=== PATIENT | female | born 1930 | race Caucasian/White ===

== ENCOUNTER → 2017-08-06 | Outpatient (CLI) | payer MEDICARE, OTHER ==
[~2017-08-06] MED LIST: AMOCLA875 PO; ASPI81EC PO; ATEN50 PO; ATOR10; ATOR20 PO; AZIT250 PO; BUDE6HFA; CALCA500S6 PO; FISH1000 PO; FOLI1 PO; FURO40 PO; IRBE150; IRBHYD150; LATA.005SO BOTHEYES; LEVFLO500 PO; LOSA50 PO; METO100ER; METO50 PO; MONT10T PO; OLME20 PO; POTA10T PO; PRAV20 PO; PROACE100 PO; RXPROACE PO; TUDORZA PRESS400 MCG INH; UBID10 PO; VALS80; XARELTO15 MG PO; Zithromax250 MG PO
== END | disposition home or self-care (01) ==
LOC: LAB SHORT 07:41 → PLD 07:41
DX: D48.5 Neoplasm of uncertain behavior of skin (principal)
CPT/HCPCS: 88305

== ENCOUNTER 2018-05-27 17:55 | Emergency (ER) | payer MEDICARE, OTHER ==
[~2018-05-27] VITALS: Ht 160 cm; Wt 54.4 kg
[2018-05-27 18:34] LABS: BASOPHILS ABSOLUTE AUTO 0.06 K/mm3 (0.00-0.23); BASOPHILS PERCENT AUTO 1 % (0-2); EOSINOPHILS ABSOLUTE AUTO 0.13 K/mm3 (0.00-0.68); EOSINOPHILS PERCENT AUTO 2 % (0-6); Hematocrit 46.3 % (33.0-51.0); Hemoglobin 14.2 g/dL (11.5-16.0); IMMATURE GRAN ABSOLUTE AUTO 0.02 K/mm3 (0.00-0.10); IMMATURE GRAN PERCENT AUTO 0 % (0-1); LYMPHOCYTES PERCENT AUTO 20 % (21-46); MONOCYTES ABSOLUTE AUTO 0.74 K/mm3 (0.16-1.47); MONOCYTES PERCENT AUTO 10 % (4-13); Mean Corpuscular HGB 33.2 pg (26.0-34.0); Mean Corpuscular HGB Conc 30.7 g/dL (31.5-36.5); Mean Corpuscular Volume 108 fL (80-100); Mean Platelet Volume 10.2 fL (9.1-12.4); NEUTROPHILS ABSOLUTE AUTO 5.11 K/mm3 (1.96-9.15); NEUTROPHILS PERCENT AUTO 68 % (41-73); Platelet Count 228 K/mm3 (150-400); RDW Coefficient Variation 13.1 % (11.7-14.2); RDW Standard Deviation 52.2 fL (35.1-46.3); Red Blood Cell Count 4.28 M/mm3 (3.80-5.20); White Blood Cell Count 7.56 K/mm3 (4.00-11.30)
[2018-05-27 18:44] LABS: Albumin, Blood 2.8 g/dL (3.4-5.0); Albumin/Globulin Ratio 0.7 (0.8-1.8); Bilirubin, Total 0.8 mg/dL (0.1-1.0); Bun/Creatinine Ratio 23.6 (12.0-20.0); Calcium, Blood 8.1 mg/dL (8.5-10.1); Creatinine, Blood 1.27 mg/dL (0.40-1.00); Globulin, Blood 4.2 g/dL (2.2-4.0); Potassium, Blood 4.4 mmol/L (3.5-5.5)
== END 2018-05-27 21:06 | disposition home or self-care (01) ==
LOC: ER 17:55
PROVIDERS: Emergency Medicine
DX: J44.1 Chronic obstructive pulmonary disease with (acute) exacerbation (principal); I48.91 Unspecified atrial fibrillation; I12.9 Hypertensive chronic kidney disease with stage 1 through stage 4 chronic kidney disease, or unspecified chronic kidney disease; N18.9 Chronic kidney disease, unspecified; E78.00 Pure hypercholesterolemia, unspecified; Z87.891 Personal history of nicotine dependence; Z79.899 Other long term (current) drug therapy
CPT/HCPCS: 36415; 71046; 80053; 85025; 93005; 93010; 94644; J1100

== ENCOUNTER → 2018-06-03 | Outpatient (CLI) | payer MEDICARE, OTHER | LOC: LAB EV 12:15 → LAB SHORT 12:15 | DX: R31.0 Gross hematuria (principal) | CPT/HCPCS: 87077; 87086; 87186 ==

== ENCOUNTER 2018-06-20 20:18 | Observation (INO) | payer MEDICARE, OTHER ==
[~2018-06-20] VITALS: Ht 160 cm; Wt 54.4 kg
[2018-06-20 23:41] LABS: BASOPHILS ABSOLUTE AUTO 0.08 K/mm3 (0.00-0.23); BASOPHILS PERCENT AUTO 1 % (0-2); EOSINOPHILS ABSOLUTE AUTO 0.28 K/mm3 (0.00-0.68); EOSINOPHILS PERCENT AUTO 3 % (0-6); Hematocrit 42.5 % (33.0-51.0); Hemoglobin 13.3 g/dL (11.5-16.0); IMMATURE GRAN ABSOLUTE AUTO 0.02 K/mm3 (0.00-0.10); IMMATURE GRAN PERCENT AUTO 0 % (0-1); LYMPHOCYTES ABSOLUTE AUTO 1.93 K/mm3 (0.84-5.20); LYMPHOCYTES PERCENT AUTO 23 % (21-46); MONOCYTES ABSOLUTE AUTO 0.96 K/mm3 (0.16-1.47); MONOCYTES PERCENT AUTO 12 % (4-13); Mean Corpuscular HGB 32.4 pg (26.0-34.0); Mean Corpuscular HGB Conc 31.3 g/dL (31.5-36.5); Mean Corpuscular Volume 104 fL (80-100); Mean Platelet Volume 9.4 fL (9.1-12.4); NEUTROPHILS PERCENT AUTO 61 % (41-73); Platelet Count 267 K/mm3 (150-400); RDW Coefficient Variation 13.2 % (11.7-14.2); RDW Standard Deviation 50.7 fL (35.1-46.3); White Blood Cell Count 8.37 K/mm3 (4.00-11.30)
[2018-06-21] LABS: Albumin, Blood 2.5 g/dL (3.4-5.0); Albumin/Globulin Ratio 0.6 (0.8-1.8); Bilirubin, Total 0.3 mg/dL (0.1-1.0); Bun/Creatinine Ratio 20.1 (12.0-20.0); Creatinine, Blood 1.69 mg/dL (0.40-1.00); Globulin, Blood 3.9 g/dL (2.2-4.0); Potassium, Blood 4.4 mmol/L (3.5-5.5); Total Protein, Blood 6.4 g/dL (6.4-8.2)
--- NOTE | 2018-06-21 04:03 | NUR ---
ADMISSION: REPORT RECIEVED FROM ED BUD SAGE, PT TO UNIT AT 0115. PT ABLE TO WALK FROM GURNEY TO BED, PT IS A/O ANSWERING QUESTIONS. NO ACUTE DISTESS, PT DENIES VISION CHANGES, HEADACHE, NO DECREASED LOC. NUERO CHECK WNL. PUPILS ROUND AND REACTIVE. ABLE TO COMPLETE PT HISTORY, PT REPORTS PAIN AT CONTUSION SITE, WILL CALL DR. ZULETA. WILL CTM PT STATUS
--- NOTE | 2018-06-21 06:09 | NUR ---
PT TO CT AT THIS TIME, TRANSPORTED WITH 2L O2
--- NOTE | 2018-06-21 06:10 | NUR ---
SUMMARY: NO ACUTE CHANGE SINCE ADMISSION. PT REMAINS A/O. VSS. NUERO CHECK WNL. PT STATES THAT TYLENOL HELPED HER PAIN AT CONTUSION. PT USING CALL LIGHT. IV FLUIDS INFUSING. VSS. NO SAFETY CONCERNS AT THIS TIME, BED ALARM ON FOR SAFETY.
--- NOTE | 2018-06-21 14:10 | NUR ---
UPDATED DR. SONG ON PT/OT THERAPY RECOMMENDATIONS ON STAYING ANOTHER DAY. UPDATED ON INCREASED NECK PAIN--TYLENOL ORDERED TO 1000MG PER DR. SONG.
--- NOTE | 2018-06-21 18:00 | NUR ---
SHIFT SUMMARY NO NEUROLOGICAL CHANGES TODAY. VSS. PT HAD SLIGHT HEADACHE AT BEGINNING OF SHIFT AND TYLENOL GIVEN AND WAS EFFECTIVE. PT DOES COMPLAIN OF NECK PAIN INTERMITTENTLY. PT UP WITH SBA WHILE AMBULATING. IV SL. MARIANNA REG DIET. PT/OT WORKED WITH PT TODAY--PLAN IS TO GO HOME WITH HOME HEALTH UPON DISCHARGE. FAMILY AT BEDSIDE FOR SUPPORT.
--- NOTE | 2018-06-22 06:45 | NUR ---
SUMMARY PT REPORTING SLEPT WELL NO DECLINE IN NEURO STATUS. DEBI.
--- NOTE | 2018-06-22 10:45 | NUR ---
DR SONG IN TO SEE PT.
[2018-06-22] MEDS ORDERED: ACET325 PO (11:45)
--- NOTE | 2018-06-22 11:50 | NUR ---
FAXED FACESHEET AND PRESCRIPTION FOR FWW TO [facility].
--- NOTE | 2018-06-22 13:32 | NUR ---
dc'd REVIEWED DC PAPERWORK W/PT, DAUGHTER. VERBALIZED UNDERSTANDING. DC'D IV, CATHETER INTACT. PT LEFT UNIT IN WC W/POSSESSIONS AND DC PAPERWORK IN HAND. PT REFUSED TO TAKE WALKER, STATING WILL USE CANE AT HOME.
== END 2018-06-22 13:31 | disposition home health service (06) ==
LOC: ER 20:18 → SURS 20:19
PROVIDERS: ADMIT Internal Medicine
DX: S00.03XA Contusion of scalp, initial encounter (principal); J44.9 Chronic obstructive pulmonary disease, unspecified; I12.9 Hypertensive chronic kidney disease with stage 1 through stage 4 chronic kidney disease, or unspecified chronic kidney disease; N18.3 Chronic kidney disease, stage 3 (moderate); I48.91 Unspecified atrial fibrillation; E78.5 Hyperlipidemia, unspecified; M19.90 Unspecified osteoarthritis, unspecified site; Z99.81 Dependence on supplemental oxygen; Z79.899 Other long term (current) drug therapy; Z79.01 Long term (current) use of anticoagulants; W01.0XXA Fall on same level from slipping, tripping and stumbling without subsequent striking against object, initial encounter
CPT/HCPCS: 36415; 70450; 72125; 80053; 85025; 96360; 96361; 97116; 97162; 97165; 97530; 99285-25; G0378; J7030

== ENCOUNTER → 2018-07-03 | Outpatient (CLI) | payer MEDICARE, OTHER ==
[~2018-07-03] MED LIST changes: +ACET325 PO
[2018-07-03 11:26] LABS: BASOPHILS PERCENT AUTO 1 % (0-2); EOSINOPHILS ABSOLUTE AUTO 0.22 K/mm3 (0.00-0.68); EOSINOPHILS PERCENT AUTO 2 % (0-6); Hematocrit 43.2 % (33.0-51.0); IMMATURE GRAN ABSOLUTE AUTO 0.05 K/mm3 (0.00-0.10); IMMATURE GRAN PERCENT AUTO 0 % (0-1); LYMPHOCYTES ABSOLUTE AUTO 1.73 K/mm3 (0.84-5.20); LYMPHOCYTES PERCENT AUTO 14 % (21-46); MONOCYTES ABSOLUTE AUTO 1.41 K/mm3 (0.16-1.47); MONOCYTES PERCENT AUTO 11 % (4-13); Mean Corpuscular HGB 32.3 pg (26.0-34.0); Mean Corpuscular HGB Conc 32.4 g/dL (31.5-36.5); Mean Platelet Volume 9.8 fL (9.1-12.4); NEUTROPHILS ABSOLUTE AUTO 8.83 K/mm3 (1.96-9.15); NEUTROPHILS PERCENT AUTO 72 % (41-73); Platelet Count 213 K/mm3 (150-400); RDW Coefficient Variation 13.7 % (11.7-14.2); RDW Standard Deviation 50.1 fL (35.1-46.3); Red Blood Cell Count 4.34 M/mm3 (3.80-5.20); White Blood Cell Count 12.34 K/mm3 (4.00-11.30)
[2018-07-03 11:27] LABS: Mean Corpuscular Volume 100 fL (80-100)
[2018-07-03 11:29] LABS: Calcium, Blood 8.3 mg/dL (8.5-10.1); Creatinine, Blood 1.9 mg/dL (0.40-1.00); Potassium, Blood 4.6 mmol/L (3.5-5.5)
== END | disposition home or self-care (01) ==
LOC: LAB EV 11:20 → LAB SHORT 11:20
PROVIDERS: Internal Medicine
DX: I95.89 Other hypotension (principal)
CPT/HCPCS: 80048; 85025

== ENCOUNTER 2018-08-30 12:10 | Inpatient (IN) | payer MEDICARE, OTHER ==
[~2018-08-30] VITALS: Ht 165.1 cm; Wt 57.3 kg
[~2018-08-30 12:10] MED LIST changes: -ALBU90OI INH; -ASPI325 PO; -BUDE6HFA INH; -CEFD300 PO; -FURO20 PO; -Mucinex600 MG PO
[2018-08-30 13:23] LABS: Alanine Aminotransfer (ALT/SGP 14 U/L (12-78); Albumin, Blood 3.1 g/dL (3.4-5.0); Albumin/Globulin Ratio 0.8 (0.8-1.8); Alk Phos 128 U/L (50-136); Anion Gap 5 mmol/L (6-16); Aspartate Aminotrans (AST/SGOT 12 U/L (12-37); Bilirubin, Total 0.4 mg/dL (0.1-1.0); Blood Urea Nitrogen 30 mg/dL (8-24); Bun/Creatinine Ratio 16.8 (12.0-20.0); CO2, Blood 29 mmol/L (21-32); Calcium, Blood 8.3 mg/dL (8.5-10.1); Chloride, Blood 107 mmol/L (98-108); Creatinine, Blood 1.79 mg/dL (0.40-1.00); Globulin, Blood 3.8 g/dL (2.2-4.0); Glomerular Filtration Rate 28 (60-); Glucose, Blood 103 mg/dL (70-99); Sodium, Blood 141 mmol/L (136-145); Total Protein, Blood 6.9 g/dL (6.4-8.2); Troponin I <0.015 ng/mL (0.000-0.040)
[2018-08-30] MEDS ORDERED: ASPI325 PO (14:05)
[2018-08-30] MEDS ORDERED: Mucinex600 MG PO (14:05)
--- NOTE | 2018-08-30 14:53 | NUR ---
Telephone report from Robe Calvert RN, at this time. Anticipate arrival of pt to PCU 14 shortly.
[2018-08-30] MEDS ORDERED: FURO20 PO (15:41)
[2018-08-30 15:54] LABS: Source, Urine Clean Catch
[2018-08-30 15:57] LABS: Appearance, Urine Clear (Clear); Bilirubin, Urine Neg (Neg); Blood, Urine 2+ (Neg); Color, Urine Yellow (P-Yellow); Glucose Qualitative, Urine Neg (Neg); Ketones, Urine Neg (Neg); Leukocyte Esterase, Urine 2+ (Neg); Nitrite, Urine Neg (Neg); Protein, Urine 2+ (Neg); Specific Gravity, Urine 1.015 (1.003-1.022); Urobilinogen, Urine NORM (Normal)
[2018-08-30 16:06] LABS: Squamous Epithelial Cells Few /hpf (Few)
[2018-08-30 16:07] LABS: Bacteria Few /hpf; Granular Casts 0-2 /lpf (0); Transitional Epithelial Cells Few /hpf (0-Rare)
--- NOTE | 2018-08-30 16:40 | NUR ---
The pt arrived from ED via stretcher, in no apparent distress but states that she is having difficulty breathing. Sheis wearing oxgyen at 2.5 l/min but states that her normal delivery rate at home is 3 l/min. Lung sounds are clear but diminished in the bases. Tachypneic at rest, and dyspneic with activity of getting up to the bedside commode with assistance. Her daughter Lori is at the bedside with her. Dr. Welch was here to see the patient shortly after her arrival. Telemetry monitoring shows afib at rate of 100-105. Mild JVD noted. Pt was instructed on the fluid restriction, as well as given educational brochures on heart failure and an AHA daily checklist for heart failure patients.
--- NOTE | 2018-08-30 18:36 | NUR ---
Bill has been able to get OOB to the bedside commode to void; she is short of breath after the activity, but is able to speak short phrases until she catches her breath. She is voiding frequently after receiving IV lasix. Wearing oxygen at 3 l/min, which is her baseline home delivery rate. Blood pressure has been stable, and heart rate in the 110s, afib per delivery specialist tech.
--- NOTE | 2018-08-30 19:45 | NUR ---
ASSUMED CARE PT RESTING IN ROOM COMFORTABLY AT THIS TIME. PER DAY SHIFT PT HAS BEEN UNDERGOING DIURESIS W/ IV LASIX D/T CHF EXACERBATION. NO ACUTE CHANGES IN STATUS TODAY. PT IS GENERALLY WEAK AND SOME SOME DYSPNEA W/ EXERTION. CURRENTLY RESP IS EVEN UNLABORED ON 3L NC W/ SATS >92%. PT DENIES ANY PAIN AT THIS TIME. DENIES OTHER NEEDS. PT ON FLUID RESTRICTION, AND STRICT I/O. CALL LIGHT IN REACH.
[2018-08-31 04:38] LABS: Bun/Creatinine Ratio 17.3 (12.0-20.0); Calcium, Blood 8.1 mg/dL (8.5-10.1); Creatinine, Blood 1.85 mg/dL (0.40-1.00); Potassium, Blood 4.5 mmol/L (3.5-5.5)
--- NOTE | 2018-08-31 06:37 | NUR ---
SHIFT SUMMARY PT SLEEPING IN ROOM COMFORTABLY AT THIS TIME. NO ACUTE CHANGES IN STATUS T/O NIGHT. PT SLEPT WELL AND WAS UP TO BSC MULTIPLE TIMES TO URINATE. RESP EVEN UNLABORED AT REST ON 3L NC W/ SATS >92%. PT SLIGHTLY DYSPNIC W/ EXERTION TO BSC. DENIES PAIN, DENIES OTHER NEEDS. CALL LIGHT IN REACH. WILL REPORT OFF TO DAY RN.
--- NOTE | 2018-08-31 14:40 | NUR ---
Bill was up in the chair for lunch, which she tolerated well, ableit with some mild dyspnea during the activity of getting up to the chair. She has been napping this afternoon, and is back in bed at this time, with her daughter Lori at the bedside.
--- NOTE | 2018-08-31 15:55 | NUR ---
Telephone report given to Lazaro Craig RN, at this time.
--- NOTE | 2018-08-31 18:03 | NUR ---
PATIENT TRANSFERRED FROM PCU. SINCE ON THIS FLOOR SHE HAS HAD NO COMPLAINTS OF PAIN,SOB, OR NV. SHE IS ALERT AND ORIENTED AND COMPLIANT WITH CARES. SHE CONTINUES TO REQUIRE 3 L O2. PATIENT ON 1500 CC FLUID RESTRICTIONS.
--- NOTE | 2018-09-01 04:52 | NUR ---
SHIFT SUMMARY: 87 Y/O SLENDER FEMALE RESTED COMFORTABLY ALL SHIFT. PT DENIES PAIN OR NAUSEA, ALERT AND ORIENTED X 3, ABLE TO FOLLOW ALL SIMPLE VERBAL COMMANDS. PT WORE O2 AT 2L/M PER NASAL CANNULA WITH SATS AVERAGING AROUND 91%. PTS BED ALARM APPLIED, BED LOW POSITION, CALL LIGHT AT SIDE.
--- NOTE | 2018-09-01 17:50 | NUR ---
PT HAS BEEN AOX4 AND COOEPERATIVE OF ALL CARE. PT HAS BEEN RESTING IN BED. PT STATED SHE FELT BETTER TO BE LEAVING SUNDAY AND NOT TODAY. PT RELAXED AND DENIES PAIN AT THIS TIME. FOLLOWING FLUID RESTRICITON WELL. WILL CONTINUE TO MONITOR.
--- NOTE | 2018-09-02 04:12 | NUR ---
SHIFT SUMMARY: 87 Y/O FEMALE RESTED COMFORTABLY ALL SHIFT. PT ABLE TO TRANSFER AND AMBULATE TO BATHROOM AND BACK VIA WALKER X 1 STANDBY ASSIST. PT ALERT AND ORIETED X 3, ABLE TO FOLLOW SIMPLE VERBAL COMMANDS. PT DENIES PAIN OR NAUSEA. PTS BED ALARM APPLIED, BED LOW POSITION, CALL LIGHT AT SIDE.
--- NOTE | 2018-09-02 13:30 | NUR ---
Spiritual Care initial visit: Mrs. Spangler is a delightful woman who tells me she has a strong alba in a loving God. This alba sustains her. she is also well supported by family. She is being discharged today. She appears upbeat and [;easant. We prayed together for continued healing and for her family. She is satisfied with her Full Code status. No fears or concerns presented.
[2018-09-02] MEDS ORDERED: CEFD300 PO (13:41)
[2018-09-02] MEDS ORDERED: ALBU90OI INH (13:42)
[2018-09-02] MEDS ORDERED: BUDE6HFA INH (13:43)
[2018-09-02] MEDS ORDERED: XARELTO15 MG PO (13:43)
--- NOTE | 2018-09-02 14:08 | NUR ---
PATIENT DISCHARGE THE PATIENT WAS DISCHARGED HOME WITH HER DAUGHTER, AFTER DISCHARGE INSTRUCTIONS WERE GIVEN TO THE PATIENT. THE PATIENT LEFT THE HOSPITAL WITHOUT CONCERN OR COMPLAINT.
== END 2018-09-02 14:08 | disposition home or self-care (01) | DRG 291 ==
LOC: ER 12:10 → PCU 14:03 → MEDS 15:20
PROVIDERS: Emergency Medicine; ADMIT Internal Medicine
DX: I13.0 Hypertensive heart and chronic kidney disease with heart failure and stage 1 through stage 4 chronic kidney disease, or unspecified chronic kidney disease (principal); I50.33 Acute on chronic diastolic (congestive) heart failure; J96.21 Acute and chronic respiratory failure with hypoxia; J44.1 Chronic obstructive pulmonary disease with (acute) exacerbation; N18.4 Chronic kidney disease, stage 4 (severe); E78.00 Pure hypercholesterolemia, unspecified; Z87.891 Personal history of nicotine dependence; I48.2 Chronic atrial fibrillation; Z99.81 Dependence on supplemental oxygen; E87.5 Hyperkalemia; F32.9 Major depressive disorder, single episode, unspecified; R82.71 Bacteriuria
CPT/HCPCS: 36415; 71046; 80048; 80053; 81001; 84484; 85025; 87086; 93005; 93010; 94640; 94760; 96374; 97161; 97165; 97530; 99285-25; J1940

== ENCOUNTER → 2018-08-30 | Outpatient (CLI) | payer MEDICARE, OTHER ==
[~2018-08-30] MED LIST changes: +ALBU90OI INH; +ASPI325 PO; +BUDE6HFA INH; +CEFD300 PO; +FURO20 PO; +Mucinex600 MG PO
[2018-08-30 11:18] LABS: BASOPHILS ABSOLUTE AUTO 0.07 K/mm3 (0.00-0.23); BASOPHILS PERCENT AUTO 1 % (0-2); EOSINOPHILS ABSOLUTE AUTO 0.19 K/mm3 (0.00-0.68); EOSINOPHILS PERCENT AUTO 3 % (0-6); Hematocrit 38.9 % (33.0-51.0); Hemoglobin 11.8 g/dL (11.5-16.0); IMMATURE GRAN ABSOLUTE AUTO 0.03 K/mm3 (0.00-0.10); IMMATURE GRAN PERCENT AUTO 0 % (0-1); LYMPHOCYTES ABSOLUTE AUTO 1.19 K/mm3 (0.84-5.20); LYMPHOCYTES PERCENT AUTO 17 % (21-46); MONOCYTES ABSOLUTE AUTO 0.72 K/mm3 (0.16-1.47); MONOCYTES PERCENT AUTO 10 % (4-13); Mean Corpuscular HGB 32.5 pg (26.0-34.0); Mean Corpuscular HGB Conc 30.3 g/dL (31.5-36.5); Mean Corpuscular Volume 107 fL (80-100); Mean Platelet Volume 9.5 fL (9.1-12.4); NEUTROPHILS ABSOLUTE AUTO 4.82 K/mm3 (1.96-9.15); NEUTROPHILS PERCENT AUTO 69 % (41-73); Platelet Count 267 K/mm3 (150-400); RDW Coefficient Variation 14.6 % (11.7-14.2); RDW Standard Deviation 57.9 fL (35.1-46.3); Red Blood Cell Count 3.63 M/mm3 (3.80-5.20); White Blood Cell Count 7.02 K/mm3 (4.00-11.30)
[2018-08-30 11:21] LABS: Bun/Creatinine Ratio 15.2 (12.0-20.0); Calcium, Blood 8.4 mg/dL (8.5-10.1); Creatinine, Blood 1.98 mg/dL (0.40-1.00)
== END | disposition home or self-care (01) ==
LOC: LAB EV 11:10 → LAB SHORT 11:10
PROVIDERS: Physician Assistant Surgical
DX: R07.9 Chest pain, unspecified (principal)
CPT/HCPCS: 80048; 83880; 85025

== ENCOUNTER 2019-05-18 13:59 | Inpatient (IN) | payer MEDICARE, OTHER ==
[~2019-05-18] VITALS: Ht 165.1 cm; Wt 52.6 kg
[~2019-05-18 13:59] MED LIST changes: +ALBU90OI INH; +ASPI325 PO; +BUDE6HFA INH; +CEFD300 PO; +FURO20 PO; +Mucinex600 MG PO
[2019-05-18 14:29] LABS: BASOPHILS ABSOLUTE AUTO 0.08 K/mm3 (0.00-0.23); BASOPHILS PERCENT AUTO 1 % (0-2); EOSINOPHILS ABSOLUTE AUTO 0.12 K/mm3 (0.00-0.68); EOSINOPHILS PERCENT AUTO 2 % (0-6); Hematocrit 44.5 % (33.0-51.0); Hemoglobin 13.1 g/dL (11.5-16.0); IMMATURE GRAN ABSOLUTE AUTO 0.02 K/mm3 (0.00-0.10); IMMATURE GRAN PERCENT AUTO 0 % (0-1); LYMPHOCYTES ABSOLUTE AUTO 0.72 K/mm3 (0.84-5.20); LYMPHOCYTES PERCENT AUTO 11 % (21-46); MONOCYTES ABSOLUTE AUTO 0.61 K/mm3 (0.16-1.47); MONOCYTES PERCENT AUTO 9 % (4-13); Mean Corpuscular HGB 33.2 pg (26.0-34.0); Mean Corpuscular HGB Conc 29.4 g/dL (31.5-36.5); Mean Corpuscular Volume 113 fL (80-100); Mean Platelet Volume 9.6 fL (9.1-12.4); NEUTROPHILS ABSOLUTE AUTO 5.03 K/mm3 (1.96-9.15); NEUTROPHILS PERCENT AUTO 77 % (41-73); Platelet Count 215 K/mm3 (150-400); RDW Standard Deviation 54.7 fL (35.1-46.3); Red Blood Cell Count 3.94 M/mm3 (3.80-5.20); White Blood Cell Count 6.58 K/mm3 (4.00-11.30)
[2019-05-18 14:43] LABS: International Normalized Ratio 1.54; Prothrombin Time Results 16.1 Sec (9.7-11.5)
[2019-05-18 14:45] LABS: Calcium, Blood 8.6 mg/dL (8.5-10.1); Potassium, Blood 4.1 mmol/L (3.5-5.5)
[2019-05-18 14:49] LABS: Albumin/Globulin Ratio 0.7 (0.8-1.8); Bilirubin, Total 0.5 mg/dL (0.1-1.0); Bun/Creatinine Ratio 20.3 (12.0-20.0); Creatinine, Blood 1.53 mg/dL (0.40-1.00); Globulin, Blood 4.1 g/dL (2.2-4.0); Total Protein, Blood 7.1 g/dL (6.4-8.2)
[2019-05-18] MEDS ORDERED: Lopressor 50 mg50 MG PO (15:52)
[2019-05-18 16:44] LABS: Source, Urine Clean Catch
[2019-05-18 16:57] LABS: Bilirubin, Urine Neg (Neg); Blood, Urine 5+ (Neg); Glucose Qualitative, Urine Neg (Neg); Ketones, Urine 1+ (Neg); Leukocyte Esterase, Urine 2+ (Neg); Nitrite, Urine Neg (Neg); Protein, Urine 4+ (Neg); Urobilinogen, Urine NORM (Normal)
[2019-05-18 17:21] LABS: Appearance, Urine Bloody (Clear); Color, Urine Red (P-Yellow)
[2019-05-18 17:22] LABS: Red Blood Cells, Urine TNTC /hpf (0-2); White Blood Cells, Urine 50-100 /hpf (0-5)
[2019-05-18 17:23] LABS: Bacteria Few /hpf; Squamous Epithelial Cells Few /hpf (Few)
[2019-05-18] MEDS ORDERED: GUAI600T33 PO (20:33)
--- NOTE | 2019-05-19 04:24 | NUR ---
SHIFT SUMMARY PT NEW ED ADMIT THIS EVENING. A/O. SBA TO BSC. PT DOES BECOME SHORT OF BREATH WITH EXERTION. LUNG SOUNDS DIMINISHED. ON 2 L NC. PT ON 2.5 L O2 NC WHICH IS PT'S BASELINE. FAMILY REPORTS THAT PT HAS BEEN DYSPNEIC FOR MULTIPLE DAYS AND HAS HAD A POOR APPETITE. PT DID ASK FOR SOMETHING TO EAT AND WAS ABLE TO EAT A PUDDING AND A JELLO. COCCYX SLIGHTLY RED BUT NO BREAKDOWN. PT SELF REPOSITIONS IN BED. PT HAS VOIDED TWICE SO FAR THIS SHIFT, BOTH WITH HEMATURIA. SECOND VOID MUCH LESS RED THAN FIRST. PT DOES NOT REPORT ANY PAIN OR BURNING WITH URINATION. VITAL SIGNS HAVE BEEN STABLE. PT RESTING IN BED AT THIS TIME. WILL CONTINUE TO MONITOR.
[2019-05-19 04:52] LABS: BASOPHILS ABSOLUTE AUTO 0.07 K/mm3 (0.00-0.23); BASOPHILS PERCENT AUTO 1 % (0-2); EOSINOPHILS ABSOLUTE AUTO 0.07 K/mm3 (0.00-0.68); EOSINOPHILS PERCENT AUTO 1 % (0-6); Hematocrit 42.2 % (33.0-51.0); Hemoglobin 12.1 g/dL (11.5-16.0); IMMATURE GRAN ABSOLUTE AUTO 0.05 K/mm3 (0.00-0.10); IMMATURE GRAN PERCENT AUTO 1 % (0-1); LYMPHOCYTES ABSOLUTE AUTO 0.69 K/mm3 (0.84-5.20); LYMPHOCYTES PERCENT AUTO 12 % (21-46); MONOCYTES ABSOLUTE AUTO 0.86 K/mm3 (0.16-1.47); MONOCYTES PERCENT AUTO 15 % (4-13); Mean Corpuscular HGB 33.2 pg (26.0-34.0); Mean Corpuscular HGB Conc 28.7 g/dL (31.5-36.5); NEUTROPHILS ABSOLUTE AUTO 4.03 K/mm3 (1.96-9.15); NEUTROPHILS PERCENT AUTO 70 % (41-73); Platelet Count 203 K/mm3 (150-400); RDW Coefficient Variation 13.1 % (11.7-14.2); RDW Standard Deviation 56.6 fL (35.1-46.3); Red Blood Cell Count 3.65 M/mm3 (3.80-5.20); White Blood Cell Count 5.77 K/mm3 (4.00-11.30)
[2019-05-19 04:57] LABS: Mean Corpuscular Volume 116 fL (80-100)
[2019-05-19 05:13] LABS: Calcium, Blood 8.3 mg/dL (8.5-10.1); Creatinine, Blood 1.63 mg/dL (0.40-1.00)
--- NOTE | 2019-05-19 11:59 | NUR ---
Echocardiogram completed.
--- NOTE | 2019-05-19 16:03 | NUR ---
SHIFT SUMMARY PT AWAKE DURING SHIFT REPORT. ADMITTED DURING THE NIGHT FOR SOB AND UTI. PER REPORT, PT MORE SOB THAN USUAL WITH EXERTION. PT NORMALLY USING 2.5 - 3L O2 AT HOME, CURRENTLY USING 2.5 HERE WITH BIOX AT 97-100%. LUNGS T/O WITH INS/EXP WHEEZES. PT ABLE TO GET UP TO BSC WITH 1P SBA. NO C/O PAIN. PT JUST REPORTS BEING WEAKER THAN NORMAL. CHRONIC A-FIB IN THE S. HX CHF, COPD, CKD, AND HTN. SKIN VERY THIN, DRY, AND FRAGILE. DR HERMAN IN TO SEE PT. NEW ORDERS PLACED. PT IS A&O, PLEASANT AND CO-OP. POSSIBLE D/C TOMORROW. CALL LT IN REACH.
--- NOTE | 2019-05-19 18:23 | NUR ---
Patient gave this RN student permission to care for her on 05/20/2019
[2019-05-20 05:02] LABS: BASOPHILS ABSOLUTE AUTO 0.05 K/mm3 (0.00-0.23); BASOPHILS PERCENT AUTO 1 % (0-2); EOSINOPHILS ABSOLUTE AUTO 0.18 K/mm3 (0.00-0.68); EOSINOPHILS PERCENT AUTO 4 % (0-6); IMMATURE GRAN ABSOLUTE AUTO 0.02 K/mm3 (0.00-0.10); IMMATURE GRAN PERCENT AUTO 1 % (0-1); LYMPHOCYTES PERCENT AUTO 14 % (21-46); MONOCYTES ABSOLUTE AUTO 0.64 K/mm3 (0.16-1.47); MONOCYTES PERCENT AUTO 15 % (4-13); Mean Corpuscular HGB 32.5 pg (26.0-34.0); Mean Corpuscular HGB Conc 28.9 g/dL (31.5-36.5); NEUTROPHILS ABSOLUTE AUTO 2.71 K/mm3 (1.96-9.15); NEUTROPHILS PERCENT AUTO 65 % (41-73); Platelet Count 190 K/mm3 (150-400); RDW Coefficient Variation 13.2 % (11.7-14.2); RDW Standard Deviation 54.4 fL (35.1-46.3); Red Blood Cell Count 3.38 M/mm3 (3.80-5.20)
[2019-05-20 05:16] LABS: Mean Corpuscular Volume 112 fL (80-100)
[2019-05-20 05:28] LABS: Albumin, Blood 2.5 g/dL (3.4-5.0); Albumin/Globulin Ratio 0.7 (0.8-1.8); Alk Phos 101 U/L (50-136); Anion Gap 3 mmol/L (6-16); Aspartate Aminotrans (AST/SGOT 10 U/L (12-37); Bilirubin, Total 0.2 mg/dL (0.1-1.0); Blood Urea Nitrogen 36 mg/dL (8-24); Bun/Creatinine Ratio 18.8 (12.0-20.0); CO2, Blood 34 mmol/L (21-32); Calcium, Blood 8.4 mg/dL (8.5-10.1); Chloride, Blood 103 mmol/L (98-108); Creatinine, Blood 1.91 mg/dL (0.40-1.00); Globulin, Blood 3.6 g/dL (2.2-4.0); Glomerular Filtration Rate 26 (60-); Glucose, Blood 84 mg/dL (70-99); Phosphorus, Blood 3.3 mg/dL (2.5-4.9); Potassium, Blood 3.7 mmol/L (3.5-5.5); Sodium, Blood 140 mmol/L (136-145); Total Protein, Blood 6.1 g/dL (6.4-8.2)
[2019-05-20 05:40] LABS: Alanine Aminotransfer (ALT/SGP <6 U/L (12-78)
--- NOTE | 2019-05-20 06:30 | NUR ---
SHIFT SUMMARY PATIENT ALERT AND ORIENTED. ABLE TO SLEEP WELL MOST OF THE NIGHT. PATIENT ON 2.5 LITERS O2 VIA NASAL CANULA. IV PATENT AND FLUSHED. TELE READ AFIB OVERNIGHT. BED IN LOWEST POSITION WITH WHEELS LOCKED AND ALARM ON. CALL LIGHT WITHIN REACH. REPORT GIVEN TO ONCOMING RN.
[2019-05-20 13:48] LABS: Stool Occult Blood Guaiac 1 Neg (Neg)
--- NOTE | 2019-05-20 14:34 | NUR ---
Gregg gave permission to assist in care on 05/20/19 for tomorrow 05/21/19.
--- NOTE | 2019-05-20 17:17 | NUR ---
PATIENT IS ALERT AND ORIENTED AND COOPERATIVE WITH CARE. SHE HAS A PRODUCTIVE COUGH, YELLOW SPUTUM. A SPUTUM SAMPLE WAS SENT TODAY. A RESPIRATORY PANEL WAS COLLECTED TODAY. PATIENT IS A 1PA TO THE BSC OR BATHROOM. WEARS 2.5L O2 NC. SHE CALLS APPROPRIATELY. DAUGHTER WAS AT THE BEDSIDE THIS MORNING. WILL CONTINUE TO MONITOR.
--- NOTE | 2019-05-20 17:32 | NUR ---
Patient is A&Ox3 sitting upright in bed. Bright pleasent affect with good eye contact open to student nursing interview at bedside in private setting. Patient verbally agrees to let this writter participate in care.
--- NOTE | 2019-05-20 18:10 | NUR ---
PATIENT REFUSED SCD'S
[2019-05-20 19:49] LABS: Adenovirus Not Detected (NOT DETECT); Bordetella pertussis Not Detected (NOT DETECT); Chlamydophila pneumoniae Not Detected (NOT DETECT); Coronavirus 229E Not Detected (NOT DETECT); Coronavirus HKU1 Not Detected (NOT DETECT); Coronavirus NL63 Not Detected (NOT DETECT); Coronavirus OC43 Not Detected (NOT DETECT); Human Metapneumovirus Not Detected (NOT DETECT); Human Rhinovirus/Enterovirus Detected (NOT DETECT); Influenza A Not Detected (NOT DETECT); Influenza A/2009-H1 Not Detected (NOT DETECT); Influenza A/H1 Not Detected (NOT DETECT); Influenza A/H3 Not Detected (NOT DETECT); Influenza B Not Detected (NOT DETECT); Mycoplasma pneumoniae Not Detected (NOT DETECT); Parainfluenza Virus 1 Not Detected (NOT DETECT); Parainfluenza Virus 2 Not Detected (NOT DETECT); Parainfluenza Virus 3 Not Detected (NOT DETECT); Parainfluenza Virus 4 Not Detected (NOT DETECT); Respiratory Syncytial Virus Not Detected (NOT DETECT)
[2019-05-21 04:49] LABS: BASOPHILS ABSOLUTE AUTO 0.04 K/mm3 (0.00-0.23); BASOPHILS PERCENT AUTO 1 % (0-2); EOSINOPHILS ABSOLUTE AUTO 0.05 K/mm3 (0.00-0.68); EOSINOPHILS PERCENT AUTO 1 % (0-6); Hematocrit 37.6 % (33.0-51.0); IMMATURE GRAN ABSOLUTE AUTO 0.01 K/mm3 (0.00-0.10); IMMATURE GRAN PERCENT AUTO 0 % (0-1); LYMPHOCYTES ABSOLUTE AUTO 0.83 K/mm3 (0.84-5.20); LYMPHOCYTES PERCENT AUTO 14 % (21-46); MONOCYTES ABSOLUTE AUTO 0.57 K/mm3 (0.16-1.47); MONOCYTES PERCENT AUTO 10 % (4-13); Mean Corpuscular HGB 32.4 pg (26.0-34.0); Mean Corpuscular HGB Conc 29.3 g/dL (31.5-36.5); Mean Corpuscular Volume 111 fL (80-100); Mean Platelet Volume 10.1 fL (9.1-12.4); NEUTROPHILS ABSOLUTE AUTO 4.47 K/mm3 (1.96-9.15); NEUTROPHILS PERCENT AUTO 75 % (41-73); Platelet Count 201 K/mm3 (150-400); RDW Coefficient Variation 13.2 % (11.7-14.2); RDW Standard Deviation 54.1 fL (35.1-46.3); White Blood Cell Count 5.97 K/mm3 (4.00-11.30)
[2019-05-21 05:11] LABS: Albumin, Blood 2.7 g/dL (3.4-5.0); Anion Gap 7 mmol/L (6-16); Blood Urea Nitrogen 34 mg/dL (8-24); Bun/Creatinine Ratio 18.7 (12.0-20.0); CO2, Blood 32 mmol/L (21-32); Calcium, Blood 8.3 mg/dL (8.5-10.1); Chloride, Blood 102 mmol/L (98-108); Creatinine, Blood 1.82 mg/dL (0.40-1.00); Glomerular Filtration Rate 28 (60-); Glucose, Blood 151 mg/dL (70-99); Magnesium, Blood 1.9 mg/dL (1.6-2.4); Phosphorus, Blood 2.5 mg/dL (2.5-4.9); Sodium, Blood 141 mmol/L (136-145)
--- NOTE | 2019-05-21 18:27 | NUR ---
PATIENT IS ALERT AND ORIENTED AND COOPERATIVE WITH CARE. SHE CALLS APPROPRIATLEY. NO COMPLAINTS OF PAIN. NEEDS ASSISTANCE WITH MEALS AND GETTING OUT OF BED. SHE SAT IN THE RECLINER FOR A COUPLE HOURS THIS MORNING. SHES WEARING 3L O2 HUMIDIFIED. TELE WAS DC'D TODAY. WILL CONTINUE TO MONITOR
[2019-05-22 05:29] LABS: Hematocrit 39.4 % (33.0-51.0); Hemoglobin 11.8 g/dL (11.5-16.0)
[2019-05-22 05:54] LABS: Albumin, Blood 2.8 g/dL (3.4-5.0); Anion Gap 6 mmol/L (6-16); Blood Urea Nitrogen 33 mg/dL (8-24); Bun/Creatinine Ratio 18.3 (12.0-20.0); CO2, Blood 33 mmol/L (21-32); Calcium, Blood 8.3 mg/dL (8.5-10.1); Chloride, Blood 101 mmol/L (98-108); Glomerular Filtration Rate 28 (60-); Glucose, Blood 92 mg/dL (70-99); Magnesium, Blood 2.2 mg/dL (1.6-2.4); Phosphorus, Blood 3.6 mg/dL (2.5-4.9); Potassium, Blood 4.3 mmol/L (3.5-5.5); Sodium, Blood 140 mmol/L (136-145)
--- NOTE | 2019-05-22 06:54 | NUR ---
SHIFT SUMMARY PT IS AN 88 Y/O FEMALE, ADMITTED FOR PERICARDIAL EFFUSION. SHE IS A&O X 3, AND A 1PA UP TO THE BSC. NO COMPLAINTS OF ACUTE PAIN, NAUSEA OR SOB. PT REMAINS ON 3L OF O2. VITAL SIGNS STABLE. NO ACUTE CHANGES IN PT CONDITION NOTED DURING THE NIGHT. REPORT GIVEN TO ONCOMING RN.
[2019-05-22] MEDS ORDERED: CEFP200 PO (10:46)
[2019-05-22] MEDS ORDERED: Florastor250 MG PO (10:47)
[2019-05-22] MEDS ORDERED: AZIT250 PO (10:48)
[2019-05-22] MEDS ORDERED: CLOT10 MT (10:51)
[2019-05-22] MEDS ORDERED: SPIR25 PO (10:53)
[2019-05-22] MEDS ORDERED: Prednisone10 MG PO (10:55)
--- NOTE | 2019-05-22 15:27 | NUR ---
PT DISCHARGED THE PT AND HER DAUGHTER VERBALIZED UNDERSTANDING OF THE DC INSTRUCTIONS. PRESCRIPTIONS FAXED TO [facility] REQUESTED, PT TRANSFERED VIA WHEELCHAIR, HOME PORTABLE O2 APPLIED, APPOINTMENTS MADE PRIOR TO DC, [facility] LIST GIVEN TO PT WELL NAYE DC INSTRUCTIONS, PT WAS A/OX3
== END 2019-05-22 15:17 | disposition home or self-care (01) | DRG 291 ==
LOC: ER 13:59 → MEDS 14:00 → ENPENDDIS 05-22 13:57 → MEDS 05-22 15:17
PROVIDERS: Emergency Medicine; Hospitalist; Internal Medicine Nephrology; ADMIT Internal Medicine
DX: I13.0 Hypertensive heart and chronic kidney disease with heart failure and stage 1 through stage 4 chronic kidney disease, or unspecified chronic kidney disease (principal); I50.33 Acute on chronic diastolic (congestive) heart failure; N17.0 Acute kidney failure with tubular necrosis; I31.3 Pericardial effusion (noninflammatory); N39.0 Urinary tract infection, site not specified; N18.4 Chronic kidney disease, stage 4 (severe); J44.1 Chronic obstructive pulmonary disease with (acute) exacerbation; I48.20 Chronic atrial fibrillation, unspecified; J98.11 Atelectasis; Z99.81 Dependence on supplemental oxygen; F32.9 Major depressive disorder, single episode, unspecified; D47.2 Monoclonal gammopathy; E78.5 Hyperlipidemia, unspecified; B97.89 Other viral agents as the cause of diseases classified elsewhere; D64.9 Anemia, unspecified; E88.09 Other disorders of plasma-protein metabolism, not elsewhere classified; R31.9 Hematuria, unspecified; F17.210 Nicotine dependence, cigarettes, uncomplicated; F03.90 Unspecified dementia, unspecified severity, without behavioral disturbance, psychotic disturbance, mood disturbance, and anxiety
CPT/HCPCS: 0099U; 36415; 71045; 74177; 80048; 80053; 80069; 81001; 81050; 82272; 83735; 83880; 84100; 84145; 84156; 84484; 85014; 85018; 85025; 85610; 85730; 86850; 86900; 86901; 87070; 87086; 87205; 93005; 93010; 93306; 94640; 94667; 94760; 96361; 96365-59; 97110; 97116; 97162; 97165; 97530; 99285-25; A9270; G0378; J0456; J0696; J1940; J7030; J7050; Q9967

== ENCOUNTER 2019-07-09 20:52 | Inpatient (IN) | payer MEDICARE, OTHER ==
[~2019-07-09] VITALS: Ht 165.1 cm; Wt 63.7 kg
[~2019-07-09 20:52] MED LIST changes: -ACET325 PO; -ALBU90OI INH; -BUDE6HFA INH; +CEFP200 PO; +CLOT10 MT; -FURO20 PO; +Florastor250 MG PO; +Prednisone10 MG PO
[2019-07-09 21:29] LABS: BASOPHILS PERCENT AUTO 1 % (0-2); EOSINOPHILS ABSOLUTE AUTO 0.26 K/mm3 (0.00-0.68); EOSINOPHILS PERCENT AUTO 3 % (0-6); Hematocrit 43.1 % (33.0-51.0); Hemoglobin 13.3 g/dL (11.5-16.0); IMMATURE GRAN ABSOLUTE AUTO 0.08 K/mm3 (0.00-0.10); IMMATURE GRAN PERCENT AUTO 1 % (0-1); LYMPHOCYTES ABSOLUTE AUTO 2.22 K/mm3 (0.84-5.20); LYMPHOCYTES PERCENT AUTO 23 % (21-46); MONOCYTES ABSOLUTE AUTO 0.98 K/mm3 (0.16-1.47); MONOCYTES PERCENT AUTO 10 % (4-13); Mean Corpuscular HGB 31.8 pg (26.0-34.0); Mean Corpuscular HGB Conc 30.9 g/dL (31.5-36.5); Mean Corpuscular Volume 103 fL (80-100); Mean Platelet Volume 10.1 fL (9.1-12.4); NEUTROPHILS ABSOLUTE AUTO 6.12 K/mm3 (1.96-9.15); NEUTROPHILS PERCENT AUTO 63 % (41-73); Platelet Count 279 K/mm3 (150-400); RDW Coefficient Variation 13.2 % (11.7-14.2); RDW Standard Deviation 50.7 fL (35.1-46.3); Red Blood Cell Count 4.18 M/mm3 (3.80-5.20); White Blood Cell Count 9.76 K/mm3 (4.00-11.30)
[2019-07-09 21:54] LABS: Alanine Aminotransfer (ALT/SGP 28 U/L (12-78); Albumin, Blood 2.9 g/dL (3.4-5.0); Albumin/Globulin Ratio 0.7 (0.8-1.8); Alk Phos 127 U/L (50-136); Anion Gap 9 mmol/L (6-16); Aspartate Aminotrans (AST/SGOT 31 U/L (12-37); Bilirubin, Total 0.3 mg/dL (0.1-1.0); Blood Urea Nitrogen 55 mg/dL (8-24); Bun/Creatinine Ratio 24.9 (12.0-20.0); CO2, Blood 21 mmol/L (21-32); Calcium, Blood 8.4 mg/dL (8.5-10.1); Chloride, Blood 109 mmol/L (98-108); Creatinine, Blood 2.21 mg/dL (0.40-1.00); Ethanol (Alcohol), Blood, Med 48 mg/dL; Globulin, Blood 4.1 g/dL (2.2-4.0); Glomerular Filtration Rate 22 (60-); Glucose, Blood 111 mg/dL (70-99); Potassium, Blood 4.8 mmol/L (3.5-5.5); Sodium, Blood 139 mmol/L (136-145); Troponin I <0.015 ng/mL (0.000-0.040)
[2019-07-09] MEDS ORDERED: XARELTO15 MG PO (22:00)
[2019-07-09] MEDS ORDERED: FURO20 PO (22:00)
[2019-07-09] MEDS ORDERED: METO50 PO (22:02)
[2019-07-09] MEDS ORDERED: ACET325 PO (22:03)
[2019-07-09] MEDS ORDERED: SPIR25 PO (22:03)
[2019-07-09] MEDS ORDERED: ALBU90OI INH (22:04)
[2019-07-09] MEDS ORDERED: BUDE6HFA INH (22:05)
[2019-07-09] MEDS ORDERED: GUAI600T33 PO (22:07)
[2019-07-09 23:31] LABS: International Normalized Ratio 1.07; Prothrombin Time Results 11.4 Sec (9.7-11.5)
[2019-07-10 00:39] LABS: Source, Urine Clean Catch
[2019-07-10 00:41] LABS: Bilirubin, Urine Neg (Neg); Blood, Urine 2+ (Neg); Glucose Qualitative, Urine Neg (Neg); Ketones, Urine Neg (Neg); Leukocyte Esterase, Urine 3+ (Neg); Nitrite, Urine Neg (Neg); Protein, Urine Neg (Neg); Urobilinogen, Urine NORM (Normal)
[2019-07-10 00:50] LABS: Appearance, Urine Hazy (Clear); Bacteria Few /hpf; Color, Urine Yellow (P-Yellow); Red Blood Cells, Urine 0-2 /hpf (0-2); Squamous Epithelial Cells Few /hpf (Few); White Blood Cells, Urine TNTC /hpf (0-5)
--- NOTE | 2019-07-10 04:21 | NUR ---
SUMMARY PT ARRIVED TO FLOOR IN SOME DISCOMFORT. PT USED BSC AND CLEAN CATCH WAS OBTAINED. PT DID BECOME LIGHT HEADED WHEN TRANSFERING TO BED. PT L RIB DISCOMFORT DECREASED W/ TX. PT ON 3.5 LPM AND 24 HR SPO2. PT CURRENTLY SLEEPING AND BREATHING EASY. CALL LIGHT IN REACH
[2019-07-10 09:22] LABS: Hematocrit 38.4 % (33.0-51.0); Mean Corpuscular HGB 32.2 pg (26.0-34.0); Mean Corpuscular HGB Conc 31.3 g/dL (31.5-36.5); Mean Corpuscular Volume 103 fL (80-100); Mean Platelet Volume 9.8 fL (9.1-12.4); Platelet Count 243 K/mm3 (150-400); RDW Coefficient Variation 13.2 % (11.7-14.2); Red Blood Cell Count 3.73 M/mm3 (3.80-5.20); White Blood Cell Count 9.62 K/mm3 (4.00-11.30)
[2019-07-10 09:43] LABS: Calcium, Blood 8.2 mg/dL (8.5-10.1); Creatinine, Blood 1.96 mg/dL (0.40-1.00); Potassium, Blood 4.4 mmol/L (3.5-5.5)
--- NOTE | 2019-07-10 16:39 | NUR ---
THE PATIENT HAD AN UNEVENTFUL DAY THIS SHIFT. VITALS HAVE BEEN STABLE AND WNL. PATIENT CONTINUES TO HAVE RIB PAIN R/T FALL; PO PERCOCET SEEMS EFFECTIVE. PATIENT IS PLEASANT AND COOPERATIVE WITH STAFF. CALLS FOR STAFF ASSIST NEEDED. WILL CONTINUE TO MONITOR AND PROVIDE CARE NEEDED.
--- NOTE | 2019-07-10 18:18 | NUR ---
Ignacia Crys declined ballistics professor visits at this time.
--- NOTE | 2019-07-10 18:50 | NUR ---
ASSUMED CARE RECEIVED REPORT FROM BUD SALINAS. ASSUMED CARE OF PT. RESTING COMFORTABLY AT THIS TIME, NO S/S ACUTE DISTRESS NOTED. DENIES ANY NEEDS AT THIS TIME, CALL LIGHT AND POSSESSIONS IN REACH, BED IN LOWEST POSITION WITH BED ALARM ACTIVATED. WILL CONTINUE TO MONITOR.
--- NOTE | 2019-07-11 04:53 | NUR ---
SHIFT SUMMARY PT REMAINS ASLEEP AT THIS TIME, NO S/S ACUTE DISTRESS NOTED. NO ACUTE EVENTS T/O NIGHT, SLEPT ON AND OFF. PAIN CONTROLLED WITH MEDICATIONS ORDERED AND UNINTERRUPTED REST. O2 SATS AND VS STABLE. CALL LIGHT, POSSESSIONS IN REACH, BED IN LOWEST POSITION WITH BED ALARM ACTIVATED. WILL CONTINUE TO MONITOR UNTIL DAY RN ASSUMES CARE.
--- NOTE | 2019-07-11 08:45 | NUR ---
PT PLEASANT COOP STATES IS COLD. TEMP 95.6. BROUGHT BLANKET AND TURNED HEAT UP.PT A/O PLEASANT STATES PAIN QUITE OKAY AT 6/10. WILL CALL IF INCREASES. H/R IRREG, NO MURMER NOTED. HX AFIB. PER TELE AFIB WITH RATE 80'S. LUNGS LIGHTLY COARSE T/O. PT ATTEMPTS COUGH, VERY SHALLOW. PILLOW TO RIBS TO ASST. ALSO GAVE I/S TO HELP. EDUCATED AND ENCOURAGED USE. RESP EASY, UNLABORED, SHALLOW. BT X4 LAST BM YEST. VOIDS PER BATHROOM. SBA TO 1 ASST TO BATHROOM. NO OTHER CONCERNS AT THIS TIME. BED IN LOW POSITION,C ALL LITE IN REACH, CALLS APPROP
--- NOTE | 2019-07-11 09:59 | NUR ---
called dr noriega. r/t bp 97/55 p 103, retake 101/57 p93 give only 25 mg motoprolol this dose only
--- NOTE | 2019-07-11 18:22 | NUR ---
PT QUITE PLEASANT TODAY. HAS BEEN COLD. TEMP WNL. DID WELL WALKING ABOUT ROOM WITH PT PER PT. DR SUGGESTED MAY BE ABLE TO GO HOME TOMORROW. NO OTHER CONCERNS AT THIS TIME. BED IN LOW POSITION,C ALL LITE IN REACH, CALLS APPROP
--- NOTE | 2019-07-12 04:13 | NUR ---
SHIFT SUMMARY PT HAS HAD NO ACUTE CHANGES THIS SHIFT, MEDICATED 1X FOR PAIN, NO OTHER C/O ANY KIND, PT SLEPT T/O SHIFT, CALL LIGHT IN REACH, BED ALARM ACTIVE, WILL CONT TO MONITOR UNTIL REPORT GIVEN TO DAY RN.
[2019-07-12 04:50] LABS: BASOPHILS ABSOLUTE AUTO 0.08 K/mm3 (0.00-0.23); BASOPHILS PERCENT AUTO 1 % (0-2); EOSINOPHILS ABSOLUTE AUTO 0.15 K/mm3 (0.00-0.68); EOSINOPHILS PERCENT AUTO 2 % (0-6); Hematocrit 34.3 % (33.0-51.0); Hemoglobin 10.5 g/dL (11.5-16.0); IMMATURE GRAN ABSOLUTE AUTO 0.03 K/mm3 (0.00-0.10); IMMATURE GRAN PERCENT AUTO 0 % (0-1); LYMPHOCYTES ABSOLUTE AUTO 1.45 K/mm3 (0.84-5.20); LYMPHOCYTES PERCENT AUTO 18 % (21-46); MONOCYTES ABSOLUTE AUTO 1.25 K/mm3 (0.16-1.47); MONOCYTES PERCENT AUTO 16 % (4-13); Mean Corpuscular HGB 31.3 pg (26.0-34.0); Mean Corpuscular HGB Conc 30.6 g/dL (31.5-36.5); Mean Corpuscular Volume 102 fL (80-100); Mean Platelet Volume 9.8 fL (9.1-12.4); NEUTROPHILS PERCENT AUTO 63 % (41-73); Platelet Count 186 K/mm3 (150-400); RDW Coefficient Variation 13.2 % (11.7-14.2); RDW Standard Deviation 49.5 fL (35.1-46.3); Red Blood Cell Count 3.35 M/mm3 (3.80-5.20); White Blood Cell Count 8.06 K/mm3 (4.00-11.30)
[2019-07-12 05:10] LABS: Bun/Creatinine Ratio 21.1 (12.0-20.0); Calcium, Blood 8.3 mg/dL (8.5-10.1); Creatinine, Blood 1.75 mg/dL (0.40-1.00); Potassium, Blood 5.2 mmol/L (3.5-5.5)
--- NOTE | 2019-07-12 13:46 | NUR ---
PT HAD ORTHOSTATIC VITAL SIGNS THIS AM. BLOOD PRESSURE LYING 119/71 DROPPED TO 88/38 STANDING. TELE REPORT HR AFIB 90'S HOWEVER WHEN PT UP EXERTS GOES UP TO 120-130'S. METOPROLOL HELD. DR NAVAS NOTIFIED, STATE CONTINUE TO HOLD METOPROLOL. ORDER CARDIAC CONSULT w DR BRIZUELA, HE CAME TO THE PHONE HIMSELF TO SPEAK w WATCHSTANDER. ORDER 500ML NS BOLUS & TRANSFER TO PCU FOR AMIODORONE GTT. EXPLAINED TO PT, SHE IS PLEASANT/COOPERATIVE. SHE HAS HAD PAIN D/T L RIB FX'S, PERCOCET GIVEN FOR RELIEF. SHE STATED THIS AM LIGHTHEADEDNESS WHEN GETTING UP, HAS USED CALL LIGHT FOR ASSIST. LR CONTINUES @ 5O ML/HR.
--- NOTE | 2019-07-12 15:31 | NUR ---
TRANSFER PT TO U 6 FOR AMIODORONE GTT. REPORT TO YISSEL BLUE LINE TRIMMER.
--- NOTE | 2019-07-12 17:32 | NUR ---
Echocardiogram completed.
--- NOTE | 2019-07-12 18:37 | NUR ---
SHIFT SUMMARY ASSUMED PT CARE AT 1535 FROM BUD ROSENTHAL ON MEDICAL FLOOR. PT STATUS CHANGED TO PCU FOR AMIODARONE GTT. PT ALERT & ORIENTED X4, VERY PLEASANT & COOPERATIVE W/ CARE. UPON ARRIVAL TO FLOOR, HR WAS ELEVATED IN THE 140'S, AMIODORONE GTT WAS STARTED & CONTINUES TO INFUSE, HR NOW AVERAGING AFIB 90-110'S. PT C/O SLIGHT DIZZINESS/LIGHTHEADEDNESS UPON AMBULATING W/ ASSIST TO BATHROOM, BUT DENIES ANY AT THIS TIME. BP REMAINS STABLE. PT C/O LEFT SIDED RIB PAIN RATING 5/10, PREVIOUSLY MEDICATED FOR PAIN PER EMAR PRIOR TO TRANSFER; PT STATES IT HAS IMPROVED SINCE EARLIER. PT REMAINS ON HER HOME DOSE OF OXYGEN @ 3LPM, PULSE OX >90%. PT IS CURRENTLY RESTING IN BED IN NO DISTRESS. BED LOCKED & IN LOWEST POSITION, BED ALARM ON FOR PT SAFETY. CALL RM W/ IN REACH. PT ABLE TO MAKE NEEDS KNOWN. WILL CONTINUE TO MONITOR UNTIL END OF SHIFT.
[2019-07-13 04:12] LABS: BASOPHILS ABSOLUTE AUTO 0.06 K/mm3 (0.00-0.23); BASOPHILS PERCENT AUTO 1 % (0-2); EOSINOPHILS ABSOLUTE AUTO 0.16 K/mm3 (0.00-0.68); EOSINOPHILS PERCENT AUTO 2 % (0-6); Hematocrit 34.7 % (33.0-51.0); Hemoglobin 10.6 g/dL (11.5-16.0); IMMATURE GRAN ABSOLUTE AUTO 0.03 K/mm3 (0.00-0.10); IMMATURE GRAN PERCENT AUTO 0 % (0-1); LYMPHOCYTES ABSOLUTE AUTO 1.21 K/mm3 (0.84-5.20); LYMPHOCYTES PERCENT AUTO 14 % (21-46); MONOCYTES ABSOLUTE AUTO 1.31 K/mm3 (0.16-1.47); MONOCYTES PERCENT AUTO 15 % (4-13); Mean Corpuscular HGB 31.5 pg (26.0-34.0); Mean Corpuscular HGB Conc 30.5 g/dL (31.5-36.5); Mean Corpuscular Volume 103 fL (80-100); Mean Platelet Volume 10.2 fL (9.1-12.4); NEUTROPHILS ABSOLUTE AUTO 6.17 K/mm3 (1.96-9.15); NEUTROPHILS PERCENT AUTO 69 % (41-73); Platelet Count 185 K/mm3 (150-400); RDW Coefficient Variation 13.3 % (11.7-14.2); RDW Standard Deviation 50.6 fL (35.1-46.3); Red Blood Cell Count 3.36 M/mm3 (3.80-5.20); White Blood Cell Count 8.94 K/mm3 (4.00-11.30)
[2019-07-13 04:33] LABS: Bun/Creatinine Ratio 18.5 (12.0-20.0); Calcium, Blood 8.5 mg/dL (8.5-10.1); Creatinine, Blood 1.84 mg/dL (0.40-1.00); Potassium, Blood 5.6 mmol/L (3.5-5.5)
--- NOTE | 2019-07-13 06:19 | NUR ---
SHIFT SUMMARY NO ACUTE CHANGES NOTED THROUGH THE NIGHT. PT REMIANS A&O X4, VSS, 3 L O2 VIA NC WHICH WAS REPORTED TO BE PT'S HOME DOSE, O2 SATS >95%, AMMIODORONE GTT INFUSING PER EMAR, AMMIODORONE INFUSION RATE VERIFIED WITH COGNOS DEVELOPER NO TITRATION ORDERS WERE PRESENT. HR CONTINUES TO RANGE BETWEEN 80'S-120'S. PT DENIES ANY CP/SOB. PERCOCET GIVEN FOR PAIN. INCENTIVE SPIROMETER USE ENC. PILLOW GIVEN FOR SPLINTING WHILE COUGHING. VOIDING WNL. CALL LIGHT IN REACH. WCTM.
--- NOTE | 2019-07-13 17:54 | NUR ---
SHIFT SUMMARY NO ACUTE CHANGES THROUGHOUT SHIFT. PT REMAINED ALERT & ORIENTED, COOPERATIVE W/ CARE. VSS AT THIS TIME; HR DID INCREASE INTO THE 130-140'S W/ EXERTION, BUT AVERAGED 80-120'S FOR MOST OF SHIFT. AMIODARONE GTT CONTINUES TO INFUSE; CLARIFIED RATE W/ DR. DONTAE TRIPATHI STATED TO CONTINUE GTT AT CURRENT RATE & HE MAY TRANSITION PT TO PO AMIO TOMORROW. ALSO STARTED PT ON MIDODRINE FOR TREATMENT OF HYPOTENSION. BP CURRENTLY STABLE. PT DID C/O DIZZINESS UPON STANDING & MILD SOB W/ EXERTION. MEDICATED FOR LEFT-SIDED RIB PAIN PER EMAR; ENCOURGAED INCENTIVE SPIROMETER USE. PT RESTING IN BED IN NO DISTRESS. CALL LIGHT W/ IN REACH, PT ABLE TO MAKE NEEDS KNOWN. WILL CONTINUE TO MONITOR UNTIL END OF SHIFT.
[2019-07-14 03:43] LABS: BASOPHILS ABSOLUTE AUTO 0.08 K/mm3 (0.00-0.23); BASOPHILS PERCENT AUTO 1 % (0-2); EOSINOPHILS ABSOLUTE AUTO 0.09 K/mm3 (0.00-0.68); EOSINOPHILS PERCENT AUTO 1 % (0-6); Hemoglobin 11.2 g/dL (11.5-16.0); IMMATURE GRAN ABSOLUTE AUTO 0.03 K/mm3 (0.00-0.10); IMMATURE GRAN PERCENT AUTO 0 % (0-1); LYMPHOCYTES ABSOLUTE AUTO 0.97 K/mm3 (0.84-5.20); LYMPHOCYTES PERCENT AUTO 9 % (21-46); MONOCYTES ABSOLUTE AUTO 0.99 K/mm3 (0.16-1.47); MONOCYTES PERCENT AUTO 9 % (4-13); Mean Corpuscular HGB 32.2 pg (26.0-34.0); Mean Corpuscular HGB Conc 30.3 g/dL (31.5-36.5); Mean Platelet Volume 10.5 fL (9.1-12.4); NEUTROPHILS ABSOLUTE AUTO 8.82 K/mm3 (1.96-9.15); NEUTROPHILS PERCENT AUTO 80 % (41-73); Platelet Count 180 K/mm3 (150-400); RDW Coefficient Variation 13.6 % (11.7-14.2); Red Blood Cell Count 3.48 M/mm3 (3.80-5.20); White Blood Cell Count 10.98 K/mm3 (4.00-11.30)
[2019-07-14 03:44] LABS: Mean Corpuscular Volume 106 fL (80-100)
[2019-07-14 04:05] LABS: Bun/Creatinine Ratio 19.5 (12.0-20.0); Calcium, Blood 8.3 mg/dL (8.5-10.1); Creatinine, Blood 1.74 mg/dL (0.40-1.00); Potassium, Blood 5.8 mmol/L (3.5-5.5)
--- NOTE | 2019-07-14 06:07 | NUR ---
Shift Summary Pt very painful this shift, requiring PO pain medication q4 prn per orders. Pt also with minimal sleep this shift d/t pain. Pt often seen splinting ribs, taking shallow and rapid breathes. Pt states "i'm trying to take deep breathes and cough but it hurts. I do it anyway because I know it's important." From start of shift until approx 0000, pt with HR from 120-140 with exertion. Since 0000, pt's HR has remained in 70's-80's. PO metoprolol given at 2100 per orders. Pt began shift walking to bathroom for frequent voids but d/t continued elevated HR, pt began using BSC about half-way through shift. HR less affected with the limited ambulation and pt states "this is better for me." Amiodarone gtt stopped at approx 0330 when bag was completed. Per report and per day shift die maker electronic; Dr. Guerra to follow up today with orders regarding continued amiodarone vs digoxin per day shift report. Rate has been controlled at 70 since approx 0000. Pt is overall alert and oriented. Uses bsc frequently, SBA, ROCA, calling appropriately.Will continue to monitor and update as appropriate with changes.
--- NOTE | 2019-07-14 16:52 | NUR ---
Initial spiritual care note: Mrs. Spangler denied concerns and was dismissive of referral nurse. I will remain available.
--- NOTE | 2019-07-14 17:57 | NUR ---
SHIFT SUMMARY PT ALERT AND ORIENTED. VS STABLE. HR AFIB 70-80'S. BP STABLE. PT COMPLAINED OF PAIN IN HER LEFT RIB AREA THAT WAS RELIEVED WITH MEDICAITON ADMINISTRATION. PT ABLE TO AMBULATE TO BATHROOM NEEDED WITH SBA AND FWW. SPOKE WITH DR. BRIZUELA ABOUT BLOOD PRESSURE PARAMETERS FOR MIDODRINE AND HE STATES TO GIVE IT TO BALANCE THE BLOOD PRESSURE WITH THE METOPROLOL. WILL CONTINUE TO MONITOR AND REPORT TO ONCOMING RN. CALL LIGHT IN REACH.
--- NOTE | 2019-07-15 04:24 | NUR ---
SHIFT SUMMARY PT A/O, HR AFIB IN 90'S WITH EPISODES OF 120'S WITH EXERTION. SPO2 ABOVE 90% ON 2L NC. ABLE TO AMBULATE TO BATHROOM WITH FWW/GB AND 1 ASSIST. MEDICATED ONCE PER EMAR FOR RIB PAIN. IVF INFUSING PER ORDERS. IS CURRENTLY RESTING IN BED WITH CALL LIGHT IN REACH AND BED IN LOWEST POSITION. WILL CONT TO MONITOR AND GIVE REPORT TO ONCOMING RN.
[2019-07-15 04:42] LABS: Albumin, Blood 2.5 g/dL (3.4-5.0); Albumin/Globulin Ratio 0.7 (0.8-1.8); Bilirubin, Total 0.5 mg/dL (0.1-1.0); Bun/Creatinine Ratio 19.3 (12.0-20.0); Calcium, Blood 8.1 mg/dL (8.5-10.1); Creatinine, Blood 1.81 mg/dL (0.40-1.00); Globulin, Blood 3.4 g/dL (2.2-4.0); Potassium, Blood 6.2 mmol/L (3.5-5.5); Total Protein, Blood 5.9 g/dL (6.4-8.2)
--- NOTE | 2019-07-15 04:54 | NUR ---
POTASSIUM PT'S POTASSIUM IS 6.[address] JUSTIN NOTIFIED OF CRITICAL VALUE. DOCTOR STATES HE WILL ORDER NEW MEDICATION AND REPEAT LABS AT THIS TIME. WILL REVIEW AND IMPLEMENT ORDERS DIRECTED.
--- NOTE | 2019-07-15 11:16 | NUR ---
MD VAZ AT BEDSIDE MD VAZ AT BEDSIDE - INFORMATED ТАТЬЯНА OF CONTINUED AFIB WITH RVR AND HYPOTENSION. ALSO INFORMED HIM OF KNEE AND THIGH MOTTLING AND POOR PERIPHERAL PERFUSION.
--- NOTE | 2019-07-15 14:49 | NUR ---
Spiritual care visit conducted. Patient intially states that she is not interested in spiritual care. As I spoke with patient she explained that she has had many ups and downs centered around her medical issues and that today is a down day because what "they" were trying is not working. She tells me that the doctors will have to discuss her case and come up with another plan. Patient talks about her family that inspire her to keep going. I listen empathically, normalize patient's experience and provide a calming presence. I will continue to remain available to patient and family.
--- NOTE | 2019-07-15 16:34 | NUR ---
met with patient to reivew her needs and care plan. pt up to chair very anxious to go back to bed. Able to transfer with minimal assist and walker but unsteady gait. Review of symptoms. Pt states having more headaches no rinigning in ears. She is having more symptoms of visual disturbance and buzzing when she stands. She does not feel she is going to pass out but feels sick. Denies any difficluty swallowing. poor appetitie no consitpation or nausea. Does feel flutter in chest but no chest pain her back and joints hurt and ache. She does however have bouts of pain to midback between her shoulder blades denies any ratiation or nause when this happens but does at times feel like preassure. Pt states she takes tylenol at home regularly. She lives with her daughter who is a heating repair technician and her patient care coordinator. Her grandaughter lives around the corner. pt speaks in short sentences and gets winded and fatigued with conversation. Pt states she believes she has a polst at [employer] and she has a poa and will with her family her daughter is poa. She states she is full treatment and continues to want that level of care. Review of symptoms with nursing. Review of pain control may help with controling her anexiety and heart rate. nursing awaiting update from justin.
--- NOTE | 2019-07-15 18:27 | NUR ---
PCU DAYSHIFT SUMMARY PATIENT REMAINED ALERT AND ORIENTED TO SELF, LOCATION AND SITUATION. PATIENT IS REPORTEDLY DROWSY T/O SHIFT AND SLEPT MAJORITY OF DAY. PATIENT HAD HYPOTENSION FOR MAJORITY OF DAY WITH AFIB/FLUTTER WITH RVR WITH RATE 90-130'S. MD BRIZUELA (STICK PULLER) SAW PATIENT - INFORMED HIM THAT METOPROLOL HELD THIS AM AND MIDODRINE GIVEN AND PATIENT REMAINED HYPOTENSIVE - PROVIDER PLACED NEW ORDERS TO ADDRESS FINDINGS. PALIATIVE CARE SPOKE WITH PATIENT AND PATIENT WISHES TO REMAIN FULL CODE AND FOLLOW MD ROE AND DAUGHTERS WISHES. PATIENT SBA TO BATHROOM - PATIENT VERY SYMPTOMATIC WITH SOB AND DIZZINESS WITH TRANSFERS. PATIENT HAD DIARRHEA THIS AM - HOLD BOWL CARE . NO ACUTE CHANGES T/O SHIFT. PATIENT CONTINUES TO HAVE PAIN IN RIB FRACTURED AREA. WILL CONTINUE TO MONITOR AND REPORT TO NOC SHIFT RN. CALL LIGHT W/I REACH AND BED ALARM ON.
--- NOTE | 2019-07-16 05:35 | NUR ---
SHIFT SUMMARY PT A&O; COMPLIANT W/ CARE; VSS; DENIES CHEST PAIN; O2 SATS >93 ON 2L NC; PT SLEPT WELL IN BETWEEN INTERVENTIONS; DENIES NEEDS AT THIS TIME; CALL LIGHT IN REACH; BED IN LOWEST POSITION; WILL CONTINUE TO MONITOR UNTIL HAND OFF TO DAY SHIFT RN.
[2019-07-16 12:52] LABS: Bun/Creatinine Ratio 18.5 (12.0-20.0); Calcium, Blood 7.6 mg/dL (8.5-10.1); Creatinine, Blood 2.33 mg/dL (0.40-1.00); Potassium, Blood 5.9 mmol/L (3.5-5.5)
--- NOTE | 2019-07-16 17:20 | NUR ---
PT SUMMARY: PT ALERT AND ORIENTED X 4, ABLE TO MAKE NEEDS KNOWN. HRR STIL SFIB RANGING ON THE 90'S-110S, PT DENIES ANY CHESTPAIN/PRESSURE. PT CURRENTLY ON 3L OF O2 PER DAUGHTER HER HOME O2 SUPPLEMENT BASELINE IS AT 3.5L, PT DESATS WHEN AMBULATING TO LOW 70'S, PT WAS THEN PUT ON 4L THEN CAME BACK UP ABOVE 90% WITH RESPIRATORY THERAPISTS AT BEDSIDE, PT OBVIOUS DYSPNEA POST AMBULATION. PT PARTICIPATED WITH PT/OT THERAPY, DR VAZ ORDERED TO DO ORTHOSTATIC BP, PT REFUSED TO STAND AFTER WORKING WITH THERAPY BEING WORN OUT ALSO C/O BACK AND NECK PAIN, PT WILLING TO DO IT LATER WHEN SHE AMBULATES AGAIN TO GO TO THE BATHROOM. DR BRIZUELA ORDERED BMP, POTASSIUM CAME BACK AT 5.9 DR VAZ WAS CALLED AND MADE AWARE, PROVIDER CONSULT FOR DR. BASILIO WAS ORDERED, DR BASILIO ORDERED 1AMP SODIUM BICARB ONE TIME ONLY, AND WILL DO ROUNDS TO SEE PATIENT TODAY. ALSO BLADDER SCAN PER DR VAZ FOR POSS URINE RETENTION. PT CURRENTLY RESTING IN BED CALL LIGHTS WITHIN REACH. WILL MONITOR
--- NOTE | 2019-07-16 21:00 | NUR ---
ASSUMED CARE OF PATIENT AT APPROXIMATELY 1910 FROM HARDIK Chávez RN. PATIENT ALERT AND ORIENTED X4; FORGETFUL AT TIMES; ONE ASSIST OUT OF BED W/ WALKER. PATIENT REPORTS PAIN IN LEFT SIDE FROM FALL AT HOME; TOLERABLE AT THIS TIME. PATIENT REPORTS SHE HAS NUMBNESS IN HER FINGERS IN THE MORNING ONLY. PATIENT DENIES TINGLING, DIZZINESS OR NAUSEA. AFIB ON TELE W/ RATE OF 80-90'S; OXYGEN SATURATION ABOVE 90% ON 3LPM VIA NC. PG INFUSING PER ORDER. U/S TECH BEDSIDE TO DO RENAL U/S AT APPROXIMATELY 2004; WHILE THIS RN WAS IN ANOTHER ROOM TECH CALLED TO REPORT SHE WAS GOING TO ASSIST PATIENT TO BATHROOM. AT APPROXIMAT2019 TECH STOPPED BY ANOTHER PATIENT ROOM TO TELL THIS RN THAT PATIENT WANTED TO SEE ME WHEN I GET A CHANCE. PATIENT CALLED; PCT RAJIV WENT INTO ROOM AND PATIENT REPORTS SHE WAS SOB; POURER TOOK VITAL SIGNS AND PATIENTS BLOOD PRESSURE WAS LOWER; RECOVED WITHIN A FEW MINUTES. PATIENT CURRENTLY RESTING IN BED; CALL LIGHT IN REACH; BED IN LOWEST POSISTION; BED ALARM ON; WILL CONTINUE TO MONITOR AND ASSESS UNTIL END OF SHIFT.
[2019-07-17 04:46] LABS: Hemoglobin 9.6 g/dL (11.5-16.0)
[2019-07-17 05:10] LABS: Albumin, Blood 2.4 g/dL (3.4-5.0); Anion Gap 6 mmol/L (6-16); Blood Urea Nitrogen 43 mg/dL (8-24); CHOL/HDL RATIO 3.3; CO2, Blood 24 mmol/L (21-32); CPK Creatine Kinase 191 U/L (26-193); Calcium, Blood 7.9 mg/dL (8.5-10.1); Chloride, Blood 112 mmol/L (98-108); Cholesterol 101 mg/dL (50-200); Glucose, Blood 95 mg/dL (70-99); HDL Cholesterol 31 mg/dL (>39); LDL/HDL RATIO 1.7; Low Density Lipoprotein Chol 53 mg/dL (0-110); Magnesium, Blood 1.9 mg/dL (1.6-2.4); Phosphorus, Blood 4.5 mg/dL (2.5-4.9); Potassium, Blood 5.2 mmol/L (3.5-5.5); Sodium, Blood 142 mmol/L (136-145); Triglycerides 84 mg/dL (30-160); Very Low Density Lipoprot Chol 16 mg/dL (6-32)
[2019-07-17 05:12] LABS: Bun/Creatinine Ratio 18.7 (12.0-20.0); Glomerular Filtration Rate 21 (60-); Uric Acid, Blood 6.7 mg/dL (2.6-6.0)
--- NOTE | 2019-07-17 06:05 | NUR ---
DR. BASILIO WAS BEDSIDE; NO NEW ORDERS. PATIENT SLEPT ABOUT EIGHT HOURS LAST NIGHT. INCONTINENT OF URINE ONCE THIS MORNING. VSS. WILL CONTINUE TO MONITOR AND ASSESS UNTIL END OF SHIFT. REFUSING TO DO ORTH VS.
--- NOTE | 2019-07-17 18:46 | NUR ---
SHIFT NOTE PT ALERT ANSWERING QUESTIONS IN FULL SENTENCES. PT REPORTS PAIN TO LT RIBS WHICH SHE DID RECIEVE 1 DOSE OF PERCOCET WHICH CONTROLLED PAIN WELL. PT WAS UP WITH PHYSICAL THERAPY WITHOUT ORTHOSTATIC HPOTENSION. PT COMPLAINS OF SOME LIGHT SENSTITIVTY STS THIS IS NORMAL FOR HER. VSS T/O THE SHIFT. PT HAS RESTED WELL IN BED T/O THE DAY. SPOKE WITH PT'S FMAILY PROVIDED UPDATE. DR BRIZUELA WAS IN TO SEE PT THIS EVENING WITH NO CHANGES IN ORDERS AT THIS TIME
--- NOTE | 2019-07-17 20:23 | NUR ---
pt a littile more active today and comfort improved.
--- NOTE | 2019-07-17 21:49 | NUR ---
ASSUMED CARE OF PATIENT AT APPROXIMATELY 1905 FROM DANIEL Clement RN. PATIENT ALERT AND ORIENTED X4; FORGETFUL AT TIMES; ONE ASSIST OUT OF BED W/ WALKER; PATIENT GETS DYSPNEIC WHEN RETURNING TO BED; O2 TURNED UP ONE LPM DUE TO 88-90% O2 SAT; FAN TURNED ON PATIENT FOR COMFORT; TAKES ABOUT FIVE MINUTES FOR PATIENT TO RECOVER. PATIENT REPORTS PAIN IN LEFT SIDE FROM FALL AT HOME; TOLERABLE AT THIS TIME. PATIENT REPORTS SHE HAS NUMBNESS IN HER FINGERS IN THE MORNING ONLY. PATIENT DENIES TINGLING, DIZZINESS OR NAUSEA. AFIB ON TELE W/ RATE OF 90'S; OXYGEN SATURATION ABOVE 90% ON 3.5-4.5 LPM VIA NC. PG INFUSING PER ORDER. PATIENT CURRENTLY RESTING IN BED; CALL LIGHT IN REACH; BED IN LOWEST POSISTION; BED ALARM ON; WILL CONTINUE TO MONITOR AND ASSESS UNTIL END OF SHIFT.
--- NOTE | 2019-07-18 01:28 | NUR ---
PATIENT AMBULATED TO BATHROOM AND THEN BEDSIDE COMMODE; REPORTS SHE FEELS LIKE SHE NEEDS TO HAVE BM; SMALL BM. PATIENT DYSPNEIC AND HEART RATE AFIB UP TO 120'S. AFTER PATIENT BACK TO BED; OXYGEN SAT DROPPED TO LOWER 80'S; TITRATED UP TO 5LPM VIA NC; O2 SAT AROUND 83%; OXYMIZER APPLIED AND RT CALLED FOR BREATHING TX; BP STABLE. PATIENT RECOVERED IN ABOUT 10 MINUTES; TITRATED BACK TO 3.5 LPM NC. PATIENT'S ARMS WHEEPING; DRESSINGS CHANGED MULTIPLE TIMES TONIGHT AND PLACED ON CHUCKS. HEART RATE BACK TO 90'S AFIB. NO OTHER ACUTE CHANGES TO REPORT. WILL CONTINUE TO MONITOR AND ASSESS UNTIL END OF SHIFT.
[2019-07-18 04:19] LABS: BASOPHILS ABSOLUTE AUTO 0.06 K/mm3 (0.00-0.23); BASOPHILS PERCENT AUTO 1 % (0-2); EOSINOPHILS ABSOLUTE AUTO 0.12 K/mm3 (0.00-0.68); EOSINOPHILS PERCENT AUTO 1 % (0-6); Hematocrit 32.2 % (33.0-51.0); Hemoglobin 10.1 g/dL (11.5-16.0); IMMATURE GRAN ABSOLUTE AUTO 0.04 K/mm3 (0.00-0.10); IMMATURE GRAN PERCENT AUTO 0 % (0-1); LYMPHOCYTES ABSOLUTE AUTO 0.77 K/mm3 (0.84-5.20); LYMPHOCYTES PERCENT AUTO 8 % (21-46); MONOCYTES ABSOLUTE AUTO 1.11 K/mm3 (0.16-1.47); MONOCYTES PERCENT AUTO 11 % (4-13); Mean Corpuscular HGB 32.7 pg (26.0-34.0); Mean Corpuscular HGB Conc 31.4 g/dL (31.5-36.5); Mean Corpuscular Volume 104 fL (80-100); Mean Platelet Volume 9.7 fL (9.1-12.4); NEUTROPHILS ABSOLUTE AUTO 7.93 K/mm3 (1.96-9.15); NEUTROPHILS PERCENT AUTO 79 % (41-73); NRBC ABSOLUTE 0.02 K/mm3 (0.00-0.02); NRBC Auto 0.2 /100 WBC (0.0-0.2); Platelet Count 232 K/mm3 (150-400); RDW Coefficient Variation 14.2 % (11.7-14.2); RDW Standard Deviation 53.4 fL (35.1-46.3); Red Blood Cell Count 3.09 M/mm3 (3.80-5.20); White Blood Cell Count 10.03 K/mm3 (4.00-11.30)
[2019-07-18 04:43] LABS: Magnesium, Blood 1.9 mg/dL (1.6-2.4)
[2019-07-18 04:52] LABS: Alanine Aminotransfer (ALT/SGP 15 U/L (12-78); Albumin, Blood 2.4 g/dL (3.4-5.0); Albumin/Globulin Ratio 0.8 (0.8-1.8); Alk Phos 139 U/L (50-136); Anion Gap 5 mmol/L (6-16); Aspartate Aminotrans (AST/SGOT 17 U/L (12-37); Bilirubin, Total 0.5 mg/dL (0.1-1.0); Blood Urea Nitrogen 41 mg/dL (8-24); Bun/Creatinine Ratio 18.6 (12.0-20.0); CO2, Blood 27 mmol/L (21-32); Calcium, Blood 7.6 mg/dL (8.5-10.1); Chloride, Blood 108 mmol/L (98-108); Globulin, Blood 3.1 g/dL (2.2-4.0); Glomerular Filtration Rate 22 (60-); Glucose, Blood 96 mg/dL (70-99); Phosphorus, Blood 3.8 mg/dL (2.5-4.9); Potassium, Blood 5.1 mmol/L (3.5-5.5); Sodium, Blood 140 mmol/L (136-145); Total Protein, Blood 5.5 g/dL (6.4-8.2)
--- NOTE | 2019-07-18 06:10 | NUR ---
DR. BASILIO BEDSIDE; ORDER TO D/C IVF; NO OTHER ORDERS. PATIENT SLEPT ABOUT EIGHT HOURS. VSS. WILL CONTINUE TO MONITOR AND ASSESS UNTIL END OF SHIFT.
--- NOTE | 2019-07-18 12:49 | NUR ---
pt intubated and sent to icu. spoke with daughter about code status pt wants full treatment family confirmed.
--- NOTE | 2019-07-18 13:25 | NUR ---
1235 PCU CONTROL SYSTEMS ENGINEER ALERTED THIS RN THAT PT HEART RATE HAD BEGAN TO YANNI DOWN. THIS RN TO ROOM ALONG WITH HUE RN, PT NOTED TO BE SLUMPED IN BED, NON-RESPONSIVE TO VERBAL STIMULI, NON-RESPOSIVE TO STERNAL RUB, NO PALPABLE PULSES NOTED, HOB LOWERED CPR BEGAN AT 1326 BY HUE FARRELL. CODE CALLED, CRASH CART TO ROOM. PT PLACED ON ZOLL. JOE FARRELL AND DR RAO BOTH FRO ER ARRIVED TO ROOM, DR VAZ TO ROOM. 1MG API ADMINISTERED AT 1240, 10 ML NS FLUSH ADMINISTERED. 1MG CALCIUM CHLORIDE ADMINISTERED THEN 10ML NS FLUSH. CPR CONTINUES. 1243 PULSE CHECK NOTED STRONG PALPABLE PULSES, AFIB c RVR NOTED ON ZOLL WITH A RATE OF 167. 1246 VITAL SIGNS, 185/133, HR 163, BVM VIA RT TO MAINTAIN AIRWAY. NURSING SUPPERVISOR ON PHONE WITH DAUGHTER, INTUBATION HELD DAUGHTER WAS INTITIALLY UNSURE IF SHE WISHED FOR INTUBATION. CLEARED FOR INTUBATION MOMENTS LATER. JOE FARRELL ADMINISTERS 20 ETOMIDATE AT 1249, RSI PERFORMED IMMEDIATELY FOLLOWING. 7.[address] RAO. REPORT TO BARRY ALVARADO IN ICU. PT WAS TRASNFERED TO ICU TO RESUME CARE
[2019-07-18 13:37] LABS: BASOPHILS ABSOLUTE AUTO 0.05 K/mm3 (0.00-0.23); BASOPHILS PERCENT AUTO 0 % (0-2); EOSINOPHILS ABSOLUTE AUTO 0.06 K/mm3 (0.00-0.68); EOSINOPHILS PERCENT AUTO 1 % (0-6); Hemoglobin 9.7 g/dL (11.5-16.0); IMMATURE GRAN ABSOLUTE AUTO 0.24 K/mm3 (0.00-0.10); IMMATURE GRAN PERCENT AUTO 2 % (0-1); LYMPHOCYTES ABSOLUTE AUTO 2.54 K/mm3 (0.84-5.20); LYMPHOCYTES PERCENT AUTO 21 % (21-46); MONOCYTES ABSOLUTE AUTO 1.15 K/mm3 (0.16-1.47); MONOCYTES PERCENT AUTO 10 % (4-13); Mean Corpuscular HGB 32.4 pg (26.0-34.0); Mean Corpuscular HGB Conc 29.4 g/dL (31.5-36.5); Mean Corpuscular Volume 110 fL (80-100); Mean Platelet Volume 10.1 fL (9.1-12.4); NEUTROPHILS ABSOLUTE AUTO 7.85 K/mm3 (1.96-9.15); NEUTROPHILS PERCENT AUTO 66 % (41-73); NRBC ABSOLUTE 0.07 K/mm3 (0.00-0.02); NRBC Auto 0.6 /100 WBC (0.0-0.2); Platelet Count 236 K/mm3 (150-400); RDW Coefficient Variation 14.4 % (11.7-14.2); Red Blood Cell Count 2.99 M/mm3 (3.80-5.20); White Blood Cell Count 11.89 K/mm3 (4.00-11.30)
[2019-07-18 13:43] LABS: Magnesium, Blood 2.2 mg/dL (1.6-2.4)
[2019-07-18 13:46] LABS: Bun/Creatinine Ratio 18.7 (12.0-20.0); Calcium, Blood 10.2 mg/dL (8.5-10.1); Creatinine, Blood 2.25 mg/dL (0.40-1.00); Phosphorus, Blood 5.7 mg/dL (2.5-4.9); Potassium, Blood 5.1 mmol/L (3.5-5.5)
[2019-07-18 13:49] LABS: International Normalized Ratio 1.33
--- NOTE | 2019-07-18 14:15 | NUR ---
Time spent with pt's family; daughter, Cici and granddaughter, Alecia. Met with Dr. Null following emotional support to family members. Family made decisions regarding chest compressions and extraordinary measures leading to extraordinary suffering. They are agreeable to reducing suffering with treatments, per doctor's recommendations. Following meeting with bag washer, questions answered and card given for them to call palliative care office if needed for further questions and needs. They are asking if Cici can spend the night. Instructed on policy during COVID times and stated that policy may change day to day. They are welcome to ask ICU what their current policy is. No other concerns. Cici and Alecia request time alone before returning to the ICU.
[2019-07-18 14:28] LABS: Source, Urine Catheter
[2019-07-18 14:36] LABS: Bilirubin, Urine Neg (Neg); Blood, Urine 1+ (Neg); Glucose Qualitative, Urine Neg (Neg); Ketones, Urine Neg (Neg); Leukocyte Esterase, Urine Neg (Neg); Nitrite, Urine Neg (Neg); Protein, Urine 2+ (Neg); Urobilinogen, Urine NORM (Normal)
--- NOTE | 2019-07-18 14:40 | NUR ---
ARRIVAL TO UNIT Assumed care of pt upon arrival to ICU at 1258 from PCU 6. Bedside report received from Beverley FARRELL. Per report, pt was planned for discharge today and unexpectedly became bradycardic and went into pulseless arrest. Per report, pt received 4-5 minutes chest compressions. Meds given during code documented on code blue sheet. Pt arrived with 7.[address], 22 cm ROSEMARY. Bagged by RT for respiratory management. Connected to ventilator upon arrival to room AC 14/400/5/60%. Unable to obtain peripheral SpO2. Clip probe attached to left nare. SpO2 90% or greater, excellent pleth. Dr Welch at bedside immediately upon pt arrival to ICU. Provider discussed care with Dr Emma Romero and Dr Rasheed Slaughter. Initally planned for pt to receive amiodarone drip for rate control. Pt atrial fibrallation with rate 120s-150 initially. BP stable. Pt placed in restraints on arrival to unit to prevent self-extubation. Wasserman catheter placed for strict measurement of fluid intake and output. OG tube placed for medication administration. OG tube intitially placed to LIS for stomach decompression. Large amounts of thick yellow/pink drainage from OG tube. Chest x-ray done. Per Dr Null, OG tube is appropriately placed for med administration. ETT needs to be advanced 3 cm. Pt arrived to unit with one peripheral access; powerglide to [place]. Additional access started by Norma RN and Lida RN. Propofol started to sedate for ventilator tolerance. Blood sugar obtained. Verbal order received from Dr Chaka Melvin to given 25 gm of D50. Pt's daughter (Clarisse) and granddaughter (Nyla) at bedside shortly after arrival to ICU. Family members met with Dr Chaka Melvin and Shelby FARRELL from palliative care. Clarisse stated pt to now be DNR.
--- NOTE | 2019-07-18 14:45 | NUR ---
DR MCKEON IN TO SEE PT Plans to hold amiodarone drip as pt's HR has improved. Neosynephrine to be given if pt's BP continues to be low. Provider states that central line is too aggressive of an intervention per family. Neosynephrine is okay to be administered through powerglide midline if necessary.
[2019-07-18 14:46] LABS: Appearance, Urine Clear (Clear); Color, Urine Yellow (P-Yellow)
[2019-07-18 14:51] LABS: Amorphous Light (0-Heavy); Bacteria Rare /hpf; Red Blood Cells, Urine Not Seen /hpf (0-2); Squamous Epithelial Cells Rare /hpf (Few)
[2019-07-18 14:58] LABS: PCO2 Arterial 51.9 mmHg (35-45); PO2 Arterial 129 mmHg (80-100)
[2019-07-18 14:59] LABS: pH Blood Arterial 7.25 (7.35-7.45)
--- NOTE | 2019-07-18 16:00 | NUR ---
UPDATE ABG settings called to Dr Iqbal. Provider also orders sputum sample and repeat labs at 1800. Provider asks for ventilator rate to be changed. New vent settings are AC 16/400/5/50%. ETT has been advanced 3 cm by RT Encarnacion, with assist from this RN. Pt's family members have left as visitor restrictions are in place facility-wide due to COVID-19. Family members provided with unit phone number. Family member phone numbers on white board in room. Family members educated about care pt will be receiving including ADLs, medications, and vitals. Family members verbalized understanding. Neosynephrine started through powerglide due to hypotension. Will continue to reassess BP and continued need for vasopressor.
--- NOTE | 2019-07-18 17:33 | NUR ---
SPO2 PROBE REPOSITIONED Placed from left nare to right nare to prevent skin breakdown
--- NOTE | 2019-07-18 18:00 | NUR ---
SUMMARY At this time, pt is sedated with 40 mcg/kg/min propofol. Pt responsive to painful stimulus. Pupils equal, 3 mm with brisk response to light, upward gaze noted. Pt temperature low, 96.3 per temp kent. Will continue to closely monitor. Pt provided with warm blankets and temperature has not decreased since. Vent settings AC 16/400/5/40%. ETT 7.5 cm, 24 cm ROSEMARY. SpO2 90% or greater. Atrial fibrillation per monitor with rate 70-90. Pt currently on 20 mcg/min neosynephrine. Attempted to titrated off, but pt became hypotensive. Neosynephrine and propofol infusing through powerglide midline catheter. Xarelto and midodrine given through OG tube. Pt had 165 mL urine output through kent catheter. No BM this shift. Bed in lowest position. Call light in reach. Will continue to closely monitor until care handoff and bedside report with oncoming RN.
--- NOTE | 2019-07-18 19:00 | NUR ---
DAUGHTER CALLED FOR UPDATE Update provided.
[2019-07-18 19:06] LABS: Bicarbonate Venous 21.7 mmol/L (24.0-30.0); PCO2 Venous 62.5 mmHg (38-42); PO2 Venous 35.4 mmHg (38-42)
[2019-07-18 19:07] LABS: pH Blood Venous 7.22 (7.34-7.37)
[2019-07-18 19:28] LABS: Bun/Creatinine Ratio 19.6 (12.0-20.0); Creatinine, Blood 2.14 mg/dL (0.40-1.00); Potassium, Blood 5.3 mmol/L (3.5-5.5)
--- NOTE | 2019-07-18 19:44 | NUR ---
CALL PLACED TO DR MIKE ANAND Notified provider of repeat labs. Plan to change ventilator rate to 20. VBG recheck at 2130. Notified provider that ETT appears to be be only 24 cm ROSEMARY instead of 25 ROSEMARY, which means it was advanced by 2 cm instead of 3. Provider stated this is acceptable and a repeat chest x-ray is unnecessary.
[2019-07-18 21:46] LABS: Base Excess Venous -0.2 mmol/L; Bicarbonate Venous 23.9 mmol/L (24.0-30.0); PCO2 Venous 45.2 mmHg (38-42); PO2 Venous 45.3 mmHg (38-42); pH Blood Venous 7.36 (7.34-7.37)
--- NOTE | 2019-07-18 22:38 | NUR ---
07/17 @ 22:[address] JACKSON ABOUT RESULTING VENOUS BLOOD GAS IMPROVEMENT, NO NEW ORDERS AT THIS TIME. ALSO BROUGHT UP UPWARD GAZE NOTED ON ASSESSMENT, WILL REASSESS IN AM, NO CT AT THIS TIME. DOES STILL HAVE REFLEXES INTACT, WITHDRAWS FROM PAIN, PUPILARY REFLEXES PRESENT. LIKELY FROM SEDATION, INTUBATION PROCECURAL MEDICATIONS. WILL CONTINUE TO MONITOR.
[2019-07-19 04:16] LABS: BASOPHILS ABSOLUTE AUTO 0.05 K/mm3 (0.00-0.23); BASOPHILS PERCENT AUTO 1 % (0-2); EOSINOPHILS ABSOLUTE AUTO 0.34 K/mm3 (0.00-0.68); EOSINOPHILS PERCENT AUTO 4 % (0-6); Hematocrit 29.3 % (33.0-51.0); Hemoglobin 9.2 g/dL (11.5-16.0); IMMATURE GRAN ABSOLUTE AUTO 0.09 K/mm3 (0.00-0.10); IMMATURE GRAN PERCENT AUTO 1 % (0-1); LYMPHOCYTES PERCENT AUTO 10 % (21-46); MONOCYTES PERCENT AUTO 9 % (4-13); Mean Corpuscular HGB 32.5 pg (26.0-34.0); Mean Corpuscular HGB Conc 31.4 g/dL (31.5-36.5); Mean Platelet Volume 10.1 fL (9.1-12.4); NEUTROPHILS ABSOLUTE AUTO 7.09 K/mm3 (1.96-9.15); NEUTROPHILS PERCENT AUTO 77 % (41-73); NRBC ABSOLUTE 0.06 K/mm3 (0.00-0.02); NRBC Auto 0.6 /100 WBC (0.0-0.2); Platelet Count 222 K/mm3 (150-400); RDW Coefficient Variation 14.5 % (11.7-14.2); RDW Standard Deviation 53.7 fL (35.1-46.3); Red Blood Cell Count 2.83 M/mm3 (3.80-5.20); White Blood Cell Count 9.27 K/mm3 (4.00-11.30)
[2019-07-19 04:21] LABS: Mean Corpuscular Volume 104 fL (80-100)
[2019-07-19 04:40] LABS: Anion Gap 4 mmol/L (6-16); Blood Urea Nitrogen 40 mg/dL (8-24); CO2, Blood 26 mmol/L (21-32); Calcium, Blood 7.9 mg/dL (8.5-10.1); Chloride, Blood 111 mmol/L (98-108); Creatinine, Blood 2.11 mg/dL (0.40-1.00); Glomerular Filtration Rate 24 (60-); Glucose, Blood 72 mg/dL (70-99); Magnesium, Blood 1.8 mg/dL (1.6-2.4); Phosphorus, Blood 3.6 mg/dL (2.5-4.9); Potassium, Blood 5.1 mmol/L (3.5-5.5); Sodium, Blood 141 mmol/L (136-145)
--- NOTE | 2019-07-19 05:56 | NUR ---
SHIFT SUMMARY PATIENT SLEPT WELL THROUGH NIGHT. ATTEMPTED SPONTANEOUS BREATHING TRIAL, DID WELL FOR ABOUT 18 MINUTES, FAILED AFTER 20, RSVI > 100, TACHYPNIC, LOW TIDAL VOLUMES. WHILE PROPFOL WAS OFF, PATIENT DID OPEN EYES TO COMMAND, WIGGLED BOTH FEET, WEAK ATTEMPT TO SQUEEZE FINGERS. PATIENT WAS ABLE TO MOVE ALL EXTREMETIES, NO MORE UPWARD GAZE WHILE SEDATION WAS DOWN, DID NOT ANSWER QUESTIONS. PROPOFOL NOW INCREASED TO 30 MCG/GK/MIN, NEOSYNEPHRINE @ 25 MCG/MIN. TEMPERATURE HAS CONTINUED TO RISE THROUGH NIGHT, NOT QUITE AT POINT I CAN GIVE TYLENOL. NO BM. BATH COMPLETE, LINENS CHANGED. VSS. ASSESSMENT IS CHARTED. WILL CONTINUE TO MONITOR.
--- NOTE | 2019-07-19 10:40 | NUR ---
CARE ASSUMED/SEDATION VACATION ASSESSMENT COMPLETED. VENT SETTINGS AC 20, Vt 400, PEEP 5, FIO2 40%, LS CTA. PROPOFOL INFUSING AT 30, NELLA AT 25, VSS AT THIS TIME. HR 90'S-110 AFIB, INCREASES TO 150'S WITH ANY STIMULATION, THEN BACK TO BASELINE WITH REST. PT MOVING LE'S, NOT TO COMMAND, DOES NOT OPEN EYES. FERMIN. PERIPHERAL CIRCULATION IS POOR, BILAT FEET AND TOES DISCOLORED PURPLE, COOL TO TOUCH. BILAT HANDS COOL TO TOUCH, ALL EXTREMS WITH SLOW CAP REFILL. 1000: SEDATION VACATION COMPLETED WITH DR. MCKEON AT BEDSIDE, PT WOKE AND FOLLOWED SIMPLE COMMANDS. VENT TO SPONTANEOUS WITH PS 5 AND FIO2 30%, RR 30'S, BP DECREASED, HR INCREASED TO 140'S. SEDATION RESUMED, RR SLOWED TO 263, SPO2 MID 90'S, HR 110'S. BP REMAINS HYPOTENSIVE, WILL TITRATE NELLA TO KEEP MAP >60.
--- NOTE | 2019-07-19 10:54 | NUR ---
UPDATE DR. JACKSON SPOKE WITH PT'S DAUGHTER REGARDING POSSIBLE EXTUBATION TODAY, WELL CODE AND INTUBATION STATUS AFTER EXTUBATION. DAUGHTER TO BE AT BEDSIDE FOR EXTUBATION LATER.
--- NOTE | 2019-07-19 12:08 | NUR ---
EXTUBATION DAUGHTER AT BEDSIDE, SPOKE WITH DR. JACKSON REGARDING PLAN OF CARE. SEDATION SHUT OFF, PT OPENING EYES SPONTANEOUSLY, SQUEEZES FINGERS ON COMMAND. HR 140'S AFTER SEDATION OFF, OTHER VSS, REMAINS ON NELLA 50. ORDERS FOR EXTUBATION RECEIVED, RT AT BEDSIDE. PT EXTUBATED AT 1210 ALONG WITH OGT. O2 ON PER NC AT 5L. HR REMAINS 150'S, WILL NOTIFY DR. JACKSON. RR 42, SPO2 99%. LS CTA.
--- NOTE | 2019-07-19 12:45 | NUR ---
UPDATE PT MEDICATED WITH MS AND METOPROLOL PER ORDERS, HR 130'S. JUHI VAZ AND MANUEL AT BEDSIDE TO DISCUSS PLAN OF CARE AND HOSPICE WITH PATIENT'S DAUGHTER, DAUGHTER RECEPTIVE. PALLIATIVE CARE CALLED FOR SUPPORT AND INFORMATION. SPO2 MID 90'S, RR 40'S, PT'S EYES OPEN, PT NOT TRACKING BUT FOLLOWS SIMPLE COMMANDS AND ANSWERS YES AND NO QUESTIONS.
--- NOTE | 2019-07-19 13:27 | NUR ---
COMFORT CARE ORDERS RECIEVED, NELLA DC'D, MONITORING SHUT OFF. DAUGHTER REMAINS AT BEDSIDE, ORAL SPONGES GIVEN FOR ORAL CARE. PT'S RESPIRATIONS LABORED, WILL MEDICATE PER COMFORT ORDERS.
--- NOTE | 2019-07-19 14:39 | NUR ---
Clinical Visit/ Comfort Care Decision: Called to ICU 13. Pt has been extubated, but continues to do poorly with poor prognosis. Requested by staff to review comfort measures only care plan for pt with option to discharge to hospice if appropriate. Cici, pt's daughter, is at bedside and reports that she is not emotionally doing well with the situation. She reports that she is trying to be strong for the pt, but she is "falling apart." She expresses desire to do what is best for her mother. Pt's condition and symptoms discussed with Cici. Pt has her eyes open and is answering yes and no questions. Her answers are not consistent and she does not demonstrate understanding of treatment options or care decisions. Comfort measures reviewed with Cici. She is the primary caregiver for her mother. She has lived with her for the last year and a half. She is asking her mother if she wants to at home and she states "yes." A little while later, she asks again and she states, "no." Hospice plan discussed, comfort measures are discussed in detail. Cici verbalizes understanding of all interventions and is agreeable. Instructed that pt may pass away here, or she may be appropriate for hospice discharge following the weekend. She states that she will be ready for anything that happens from this point on. Emotional support given and concerns listened to. Instructed Cici that she has done everything that her mother has asked her to: CPR and intubation. She has given her a good change to survive. She expresses gratitude of words of encouragement and validation of making correct choices for pt. Call placed to Dr. Welch for comfort measures orders, nursing updated and charge nurse notified of care plan change. Comfort care plan orders placed. Cici has the number to the palliative care office and is aware of the location of the office in the hospital; she is also reminded that nursing can call palliative care on vocera. No other concerns at this time, will continue to follow pt for symptom management.
--- NOTE | 2019-07-19 18:53 | NUR ---
COMFORT CARE/END OF SHIFT PT WAS NONVERBAL AFTER EXTUBATION, IS NO LONGER FOLLOWING COMMANDS OR NODDING/SHAKING HEAD TO ANSWER QUESTIONS, DOES NOT TRACK MOVEMENTS. MOANS AND BRACES WITH REPOSITIONING, MEDICATED WITH ROXANOL WITH GOOD RESULTS, O2 AT 7L/HIGH FLOW NC FOR COMFORT. PT REPOSITIONED Q2H, ABD PADS TO BILAT FOREARMS CHANGED AT 1800 D/T WEEPING, MEPILEX TO COCCYX CDI. DAUGHTER REMAINS AT BEDSIDE WITH PATIENT, NEEDS OF DAUGHTER MET WELL. PT MEDICATED WITH ROXANOL AT 1800, TRANSFERRED TO MEDICAL FLOOR FOR TO RESUME COMFORT CARE. REPORT TO ELIZABETH, PT TO ROOM 362 WITH MEDS, BELONGINGS, AND CHART AT 1830, DAUGHTER REMAINS WITH PATIENT.
--- NOTE | 2019-07-19 19:04 | NUR ---
PT TRANSFERRED FROM ICU AT 1845. PT IS NON RESPONSIVE AND ON CC .DAUGTER AT BEDSIDE . REPORT GIVEN TO CHU, THE BEST NURSE EVER!!
--- NOTE | 2019-07-19 21:33 | NUR ---
1914 COMFORT CARE DAUGHTER AT BEDSIDE STATED PATIENT APPEARED PAINFUL WELL NOTED SECRETIONS. MEDICATED PER EMAR. SENT OFF FOR SCAPOLAMINE PATCH. APPEARED MUCH MORE COMFORTABLE. NO ACUTE CHANGES AT THIS TIME. BED IN LOWEST POSITION. [facility].
--- NOTE | 2019-07-19 21:38 | NUR ---
2039 REPOSITIONED. SET UP SUCTION. STILL WAITING SCAPOLAMINE; WILL CALL RX. NO ACUTE CHANGES. BED IN LOWEST POSITION. CALL LIGHT WITHIN REACH. DAUGHTER AT BEDSIDE
--- NOTE | 2019-07-19 21:46 | NUR ---
2115 APPEARS TO BE RESTING; DAUGHTER AT BEDSIDE. SCAPOLAMINE PATCH PLACED TO REDUCE. WARM TO TOUCH; TEMPERATURE CHECKED EARLIER UPON REQUEST BY DAUGHTER; AFEBRILE. NO ACUTE CHANGES AT THIS TIME. BED IN LOWEST POSITION.
--- NOTE | 2019-07-20 00:03 | NUR ---
4576 COMFORT CARE APPEARS TO BE RESTING; DAUGHTER AT BEDSIDE. SCAPOLAMINE PATCH IN PLACE; SECRETIONS NOTED. LIMON SECURED AND DRAINING TO GRAVITY. WARM TO TOUCH; AFEBRILE. NO ACUTE CHANGES AT THIS TIME. BED IN LOWEST POSITION. CALL LIGHT WITHIN REACH. WCTM.
--- NOTE | 2019-07-20 01:29 | NUR ---
0129 COMFORT CARE APPEARS TO BE RESTING. NOTED SECRETIONS; SUCTION UTILIZED. REPOSITIONED; MEDICATED FOR PAIN AFTERWARDS. BED REMAINS IN LOWEST POSITION. CALL LIGHT AND BELONGINGS WITHIN REACH. DAUGHTER AT BEDSIDE. WCTM.
--- NOTE | 2019-07-20 03:04 | NUR ---
0304 COMFORT CARE APPEARS TO BE RESTING COMFORTABLY. NOTABLE COARSE RESPIRATIONS. REPOSITIONED. SUCTION UTILIZED WITH ORAL CARE. LIMON SECURED AND DRAINING TO GRAVITY. NO ACUTE CHANGES. BED IN LOWEST POSITION. CALL LIGHT WITHIN REACH. DAUGHTER AT BEDSIDE. [facility].
--- NOTE | 2019-07-20 06:16 | NUR ---
0545 COMFORT CARE APPEARED TO BE RESTING. SUCTIONED UTILIZED. REPOSITIONED. ORAL CARE COMPLETED. APPEARED COLD; WARM BLANKET APPLIED/SOCKS. APPEARED TO BEGIN TO REST AGAIN. DAUGHTER REMAINS AT BEDSIDE. BED IN LOWEST POSITION. CALL LIGHT AND BELONGINGS WITHIN REACH. TM.
--- NOTE | 2019-07-20 06:34 | NUR ---
SHIFT SUMMARY MINIMALLY REPSONSIVE; TO PAIN/STIMULATION. SUCTION UTILIZED WITH ORAL CARE COMPLETED. MEDICATED PER EMAR. REPOSITIONED; WITH ROUTINE ATTENDS CHECKS, NO BM. DAUGHTER REMAINED AT BEDSIDE T/O NIGHT. BED IN LOWEST POSITION. CALL LIGHT AND BELONGINGS IN REACH. WCTM. REPORT TO ONCOMING RN.
--- NOTE | 2019-07-20 07:34 | NUR ---
NON RESPONSIVE, SLEEPING WITH NO DISTRESS NOTED.
--- NOTE | 2019-07-20 11:18 | NUR ---
PTS DAUGHTER CAME OUT OF ROOM AND SAID PT WAS IN PAIN DUE TO SQUINTING AND MOVING HER EYES. NURSE CAME IN AND FOUND PT TO BE SLEEPING WITH NO DISTRESS ON HER FACE. NURSE EDUCATED PT REGARDING FACAIL MOVEMENTS DURING THIS PHASE OF THE PROCESS. PT IS UNRESPONSIVE. NURSE ADMINISTERED ROXINOL PER FAMILY DISTRESS. PT LOWERED TO 3 L 02 HER O2 SATS THIS MORNING WERE 98. FAMILY QUESTIONED THIS AND NURSE EXPLAINED THE REASONING BEHIND LOWERING HER O2. PT IN NO DISTRESS AND BREATHING IS WNL.
--- NOTE | 2019-07-20 12:36 | NUR ---
: Pt at 1230 this afternoon. Daughter and granddaughter are present at time of . They decline activities director scouting visit, express desire to have time with the pt and request door be shut. No other concerns at this time. Pt experienced a peaceful passing, per daughter.
--- NOTE | 2019-07-20 12:40 | NUR ---
PT PASSED AT 1230. Mohini PENNINGTON CALLED TOD. NOTIFED. FAMILY PRESENT AT BEDSIDE.
--- NOTE | 2019-07-20 13:05 | NUR ---
ASSUMED CARE FROM LACEY FARRELL. HAM STRINGER AND MARKING MACHINE OPERATOR NOTIFIED. DAUGHTER IS REQUESTING PASTORAL CARE.
--- NOTE | 2019-07-20 14:41 | NUR ---
Call back - Pt's daughter Clarisse was present. She was provided space to reflect on the events leading up to the pt's demise and the pt's life narrative. Clarisse was tearful at times, but grieving appropriately. Words of affirmation was extended and grief education provided at times. Clarisse perceives she has minimal famliy support, though she reports her daughter coming up from [place] is helpful. Verbal prayer was offered. Clarisse wants [facility] to be called. I walked Clarisse out to her car and where her daughter was waiting. Clarisse assured this PC she would be ok to drive.
== END 2019-07-20 12:30 | DRG 208 ==
LOC: ER 20:52 → MEDS 20:53 → PCU 20:53 → ER 20:53 → ICUW 20:53 → MEDS 20:53 → ER 07-11 16:33 → MEDS 07-11 16:33 → PCU 07-12 15:27 → MEDS 07-12 15:27 → PCU 07-12 15:27 → ICUW 07-18 13:08 → PCU 07-18 13:08 → ICUW 07-19 15:54 → MEDS 07-19 18:36
PROVIDERS: Family Medicine; Internal Medicine Cardiovascular Disease; Internal Medicine Critical Care Medicine; Internal Medicine Nephrology; Nurse Practitioner Acute Care; Physician Assistant; ADMIT Internal Medicine
PROC: 0BH18EZ Insertion of Endotracheal Airway into Trachea, Via Natural or Artificial Opening Endoscopic (ICD-10-PCS; principal; 2019-07-09)
PROC: 5A1945Z Respiratory Ventilation, 24-96 Consecutive Hours (ICD-10-PCS; 2019-07-09)
PROC: 5A12012 Performance of Cardiac Output, Single, Manual (ICD-10-PCS; 2019-07-18)
DX: S22.42XA Multiple fractures of ribs, left side, initial encounter for closed fracture (principal); J96.21 Acute and chronic respiratory failure with hypoxia; I48.20 Chronic atrial fibrillation, unspecified; N17.9 Acute kidney failure, unspecified; E87.2 Acidosis; E44.0 Moderate protein-calorie malnutrition; I95.1 Orthostatic hypotension; Z51.5 Encounter for palliative care; Z66 Do not resuscitate; E78.5 Hyperlipidemia, unspecified; I27.20 Pulmonary hypertension, unspecified; J44.9 Chronic obstructive pulmonary disease, unspecified; E86.0 Dehydration; Z87.891 Personal history of nicotine dependence; I12.9 Hypertensive chronic kidney disease with stage 1 through stage 4 chronic kidney disease, or unspecified chronic kidney disease; W18.30XA Fall on same level, unspecified, initial encounter; Y92.9 Unspecified place or not applicable; E87.5 Hyperkalemia; I46.9 Cardiac arrest, cause unspecified; I34.0 Nonrheumatic mitral (valve) insufficiency; N18.3 Chronic kidney disease, stage 3 (moderate); I49.8 Other specified cardiac arrhythmias; D47.2 Monoclonal gammopathy; D64.9 Anemia, unspecified; E88.09 Other disorders of plasma-protein metabolism, not elsewhere classified; Z99.81 Dependence on supplemental oxygen
CPT/HCPCS: 31500; 31720; 36415; 36600; 70450; 71045; 71101; 73502; 76770; 80048; 80053; 80061; 80069; 81001; 82533; 82550; 82803; 82947; 83605; 83735; 83880; 84100; 84132; 84439; 84443; 84484; 84550; 85014; 85018; 85025; 85027; 85610; 85730; 87070; 87077; 87086; 87186; 87205; 93005; 93010; 93308; 93321; 94002; 94003; 94640; 94760; 94762; 96361; 96374; 96376; 97110; 97116; 97162; 97165; 97530; 99285-25; A9270-GY; C1751; G0480; J0282; J0881; J1815; J2060; J2270; J2370; J2405; J2704; J3010; J7030; J7040; J7060; J7070; J7120; J7799